=== PATIENT | female | born 2000 | race Caucasian/White ===

== ENCOUNTER 2021-05-20 14:17 | Outpatient (REF) | payer OTHER, SELFPAY | END 2021-05-20 14:18 | disposition home or self-care (01) | LOC: HO.LNP 14:17 | PROVIDERS: Visit Provider Physician Assistant | DX: N39.0 Urinary tract infection, site not specified (principal) | CPT/HCPCS: 87086 ==

== ENCOUNTER 2021-07-09 13:31 | Outpatient (REF) | payer OTHER, SELFPAY ==
--- NOTE | ~2021-07-09 | XR_ITS ---
EXAMINATION: XR CHEST CLINICAL INFORMATION: Chronic cough COMPARISON: None TECHNIQUE: Frontal view of the chest was obtained. FINDINGS: There is mild levoscoliotic deformity of the upper thoracic spine contributing to slightly asymmetric lung volumes. There is question tiny focus of subsegmental atelectasis at the left base, otherwise the lungs are clear. No pleural effusion or pneumothorax. Cardiomediastinal contours are within normal limits. Structures of the chest wall are intact.. XR/XR chest 1V IMPRESSION: Possible minimal subsegmental atelectasis at the left base, otherwise no acute process.
== END 2021-07-09 13:32 | disposition home or self-care (01) ==
LOC: HO.XRAY 13:31
PROVIDERS: PCP Nurse Practitioner Acute Care; Visit Provider Nurse Practitioner Acute Care
DX: R05.3 Chronic cough (principal)
CPT/HCPCS: 71045

== ENCOUNTER 2021-08-03 08:17 | Outpatient (REF) | payer OTHER, SELFPAY ==
[2021-08-03 08:42] LABS: MANUAL DIFF FLAG NO
[2021-08-03 08:55] LABS: Basophils Absolute Auto 0.1 X10*3/uL (0.0-0.2); Basophils Percent Auto 1.1 % (0-2); Eosinophils Absolute Auto 0.4 X10*3/uL (0.0-0.4); Eosinophils Percent Auto 7.3 % (0-4); Hematocrit 40.3 % (37.0-47.0); Hemoglobin 13.1 g/dl (12.0-16.0); Imm Gran Abs Auto 0.02 X10*3/uL (0.00-0.03); Imm Gran Pct Auto 0.4 % (0.0-0.4); Lymphocytes Absolute Auto 2.3 X10*3/uL (1.2-4.9); Lymphocytes Percent Auto 41.3 % (20-40); Mean Corpuscular HGB Conc 32.5 g/dl (31.0-35.0); Mean Corpuscular Hemoglobin 28.4 pg (27.0-33.0); Mean Corpuscular Volume 87.4 fL (80.0-98.0); Mean Platelet Volume 11.9 fL (9.4-12.3); Monocytes Absolute Auto 0.3 X10*3/uL (0.1-1.2); Monocytes Percent Auto 5.9 % (2-11); Neutrophils Absolute Auto 2.5 x10*3/uL (2.0-8.3); Platelet Count 156 X10*3/uL (160-400); Red Blood Count 4.61 X10*6/uL (4.20-5.50); Red Cell Distribution Width 12.8 % (11.0-16.0); White Blood Count 5.6 X10*3/uL (4.8-10.8)
[2021-08-03 09:25] LABS: Alanine Aminotransferase 20 U/L (0-31); Albumin Level 3.9 g/dL (3.5-5.0); Alkaline Phosphatase 68 U/L (39-117); Anion Gap 9 (12-20); Aspartate Amino Transferase 17 U/L (5-31); Bilirubin Total 0.5 mg/dL (0.0-1.0); Blood Urea Nitrogen 8 mg/dL (9-16); Calcium 9.2 mg/dL (8.4-10.2); Carbon Dioxide 29 mmol/L (22-29); Chloride 103 mmol/L (96-108); Cholesterol 170 mg/dL; Estimated Glomerular Filt Rate > 60; Glucose Fasting 95 mg/dL (60-99); HDL Cholesterol 69 mg/dL; LDL Cholesterol Calculated 83 mg/dl; Potassium 3.8 mmol/L (3.3-5.1); Sodium 137 mmol/L (135-145); Total Protein 6.9 g/dL (6.5-8.0); Triglycerides 93 mg/dL
[2021-08-03 09:43] LABS: TSH reflex Free T4 1.39 uIU/mL (0.32-4.0)
[2021-08-03 11:28] LABS: Folate 6.7 ng/mL (> or = 4.0)
[2021-08-03 12:45] LABS: Vitamin B12 325 pg/mL (200-900)
[2021-08-07 16:56] LABS: Vitamin D 25-OH, D2 <4 ng/mL; Vitamin D 25-OH, D3 15 ng/mL; Vitamin D 25-OH, Total 15 ng/mL (30-100)
== END 2021-08-03 08:18 | disposition home or self-care (01) ==
LOC: HO.LAB 08:17
PROVIDERS: PCP Nurse Practitioner Acute Care; Visit Provider Nurse Practitioner Acute Care
DX: Z00.00 Encounter for general adult medical examination without abnormal findings (principal); R05.3 Chronic cough
CPT/HCPCS: 36415; 80053; 80061; 82306; 82607; 82746; 84443; 85025

== ENCOUNTER 2021-08-10 12:53 | Outpatient (REF) | payer OTHER, SELFPAY ==
--- NOTE | ~2021-08-10 | XR_ITS ---
EXAMINATION: XR CHEST CLINICAL INFORMATION: Chronic cough COMPARISON: Previous chest x-ray June 2021 TECHNIQUE: 2 views of the chest were obtained. FINDINGS: The cardiac and mediastinal contours are normal. The lungs are clear. There is no pleural effusion or pneumothorax. There is mild curvature of the proximal thoracic spine to the left. XR/XR chest 2V IMPRESSION: No evidence for acute disease in the chest.
== END 2021-08-10 12:54 | disposition home or self-care (01) ==
LOC: HO.HMGCX 12:53
PROVIDERS: PCP Nurse Practitioner Acute Care; Visit Provider Internal Medicine
DX: R05.3 Chronic cough (principal)
CPT/HCPCS: 71046

== ENCOUNTER 2021-10-23 09:58 | Outpatient (REF) | payer OTHER, SELFPAY ==
[2021-10-23 15:28] LABS: CT PCR NOT DETECTED (Not Detect.); NG PCR NOT DETECTED (Not Detect.)
[2021-10-24 15:09] LABS: BV Int Neg Control Negative (Negative); BV Int Pos Control Positive (Positive)
== END 2021-10-23 09:59 | disposition home or self-care (01) ==
LOC: HO.LAB 09:58
PROVIDERS: Visit Provider Advanced Practice Midwife
DX: Z01.419 Encounter for gynecological examination (general) (routine) without abnormal findings (principal)
CPT/HCPCS: 87480; 87491; 87510; 87591; 87660; 88142

== ENCOUNTER → 2022-02-10 09:13 | Outpatient (BNVA) | payer OTHER, SELFPAY | PROVIDERS: Visit Provider Advanced Practice Midwife | DX: Z30.430 Encounter for insertion of intrauterine contraceptive device (principal); Z30.09 Encounter for other general counseling and advice on contraception; Z32.02 Encounter for pregnancy test, result negative | CPT/HCPCS: 58300; 81025; J7296 ==

== ENCOUNTER 2022-04-02 08:18 | Outpatient (REF) | payer OTHER, SELFPAY ==
[2022-04-02 08:26] LABS: MANUAL DIFF FLAG NO
[2022-04-02 08:52] LABS: Basophils Percent Auto 0.7 % (0-2); Eosinophils Absolute Auto 0.2 X10*3/uL (0.0-0.4); Eosinophils Percent Auto 2.9 % (0-4); Hematocrit 40.8 % (37.0-47.0); Hemoglobin 13.1 g/dl (12.0-16.0); Imm Gran Abs Auto 0.01 X10*3/uL (0.00-0.03); Imm Gran Pct Auto 0.2 % (0.0-0.4); Lymphocytes Percent Auto 36.9 % (20-40); Mean Corpuscular HGB Conc 32.1 g/dl (31.0-35.0); Mean Corpuscular Hemoglobin 28.5 pg (27.0-33.0); Mean Corpuscular Volume 88.9 fL (80.0-98.0); Mean Platelet Volume 12.8 fL (9.4-12.3); Monocytes Absolute Auto 0.4 X10*3/uL (0.1-1.2); Monocytes Percent Auto 7.9 % (2-11); Neutrophils Absolute Auto 2.8 x10*3/uL (2.0-8.3); Neutrophils Percent Auto 51.4 % (45-73); Platelet Count 150 X10*3/uL (160-400); Red Blood Count 4.59 X10*6/uL (4.20-5.50); White Blood Count 5.5 X10*3/uL (4.8-10.8)
[2022-04-02 10:51] LABS: Alanine Aminotransferase 17 U/L (0-31); Albumin Level 4.2 g/dL (3.5-5.0); Alkaline Phosphatase 71 U/L (39-117); Anion Gap 9 (12-20); Aspartate Amino Transferase 14 U/L (5-31); Bilirubin Total 0.3 mg/dL (0.0-1.0); Blood Urea Nitrogen 9 mg/dL (9-16); Calcium 9.2 mg/dL (8.4-10.2); Carbon Dioxide 30 mmol/L (22-29); Chloride 100 mmol/L (96-108); Estimated Glomerular Filt Rate > 60; Glucose Random 102 mg/dL (60-115); Potassium 3.9 mmol/L (3.3-5.1); Sodium 135 mmol/L (135-145); TSH reflex Free T4 1.97 uIU/mL (0.32-4.0); Total Protein 6.9 g/dL (6.5-8.0); Vitamin D 25-OH Total 14.2 ng/mL (>30)
== END 2022-04-02 08:19 | disposition home or self-care (01) ==
LOC: HO.LAB 08:18
PROVIDERS: PCP Nurse Practitioner Family; Visit Provider Nurse Practitioner Family
DX: F41.9 Anxiety disorder, unspecified (principal); E55.9 Vitamin D deficiency, unspecified
CPT/HCPCS: 36415; 80053; 82306; 84443; 85025

== ENCOUNTER → 2022-10-28 10:06 | Outpatient (BNVA) | payer OTHER, SELFPAY | PROVIDERS: PCP Nurse Practitioner Family; Visit Provider Internal Medicine | DX: Z13.89 Encounter for screening for other disorder (principal) | CPT/HCPCS: 99202 ==

== ENCOUNTER 2022-10-28 14:32 | Outpatient (REF) | payer OTHER, SELFPAY ==
[2022-10-28 16:13] LABS: Vitamin D 25-OH Total 29.3 ng/mL (>30)
== END 2022-10-28 14:33 | disposition home or self-care (01) ==
LOC: HO.LAB 14:32
PROVIDERS: PCP Nurse Practitioner Family; Visit Provider Nurse Practitioner Family
DX: E55.9 Vitamin D deficiency, unspecified (principal)
CPT/HCPCS: 36415; 82306

== ENCOUNTER 2023-01-18 09:47 | Outpatient (REF) | payer OTHER, SELFPAY | END 2023-01-18 09:48 | disposition home or self-care (01) | LOC: HO.LAB 09:47 | PROVIDERS: Visit Provider Advanced Practice Midwife | DX: N89.8 Other specified noninflammatory disorders of vagina (principal) | CPT/HCPCS: 81003 ==

== ENCOUNTER 2023-01-18 09:47 | Outpatient (AMB) | payer OTHER, SELFPAY ==
--- NOTE | 2023-01-18 09:52 | A.OFFVIS_ITS ---
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 Scribed for CHICO Apodaca by Leticia Andino quality engineer medical device, on 01/18/2023 at 10:10 am EST. Financial Processing Clerk: Financial Processing Clerk Present (Jess) Allergies No Known Allergies Allergy (Verified 01/18/23 09:53) Is last menstrual period known: Yes Last menstrual period: 12/28/22 HPI HPI Comments History of Present Illness Details She is a premenopausal woman presenting for annual exam. Reports feeling like she is not fully emptying bladder. Denies pelvic pain, fever/ flu-like symptoms or dysuria. She admits to eating healthy and tries to stay active with exercise. Currently sexually active. Uses Kyleena for BC. Denies vaginal itching and irritation. STD screening offered; she accepts. STD blood work offered; she declines. Denies family hx of colon and ovarian cancer. Last pap smear 10/23/21. [facility] Medical History Encounter to establish care Post-COVID syndrome COVID-19 Chronic cough URI (upper respiratory infection) UTI (urinary tract infection) Surgical History No pertinent past surgical history Family History Mother Age: 62 No problems noted. Father No problems noted. 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 Cognitive needs: No Hearing needs: No Vision needs: Yes (contacts) Female Reproductive History Menstrual Age of Menarche: 10 Duration of menses: 6-7 days Date of last menstrual period: 12/28/22 control method: progestin IUCD (Kyleena; IUD strings visible 01/18/23) Total pregnancies: 0 Date of last pap smear: 10/23/21 (neg) Physical Exam Vital Signs: Last Vital Signs BP 110/74 01/18/23 09:53 BMI result Body Mass Index 22.9 Const General: cooperative, healthy appearing, no acute distress, well developed and alert Orientation/consciousness: patient oriented x3 HEENT Head: Yes normal to inspection Eyes General: appearance normal, both eyes and all related structures Neck Neck: Yes normal visual inspection Thyroid: Thyroid normal Chest Chest palpation & inspection: normal inspection of the chest Breast/axilla inspection: normal inspection of the breasts (no puckering, dimpling, peau de orange, retraction, discharge, masses) Breast/axilla palpation: normal palpation of the breasts Resp Effort & Inspection: normal respiratory effort GI Inspection: Yes normal to inspection Palpation (GI): Soft to palpation (to palpation) Rectal Exam - Female: deferred General: Yes bladder normal to inspection External Female Exam: normal external appearance and normal appearance of the urethra Speculum Exam - Vagina: normal appearance of the vagina, normal palpation and abnormal vaginal discharge white and frothy Speculum Exam - Cervix: normal appearance of the cervix, normal palpation and Other cervical findings present (IUD strings visible) Bimanual exam- vagina & uterus: normal palpation and normal palpation Bimanual Exam- Adnexa, other: normal adnexae and no masses Skin General skin exam: no rashes or lesions noted Neuro General: patient oriented x3 Cognition (Neuro): normal cognition Extrem General: Yes normal to inspection Psych Attitude: cooperative Thought process: Normal thought process present Results AMB Urinalysis, Automated UA Leukoctes 0 Duy/uL Last Edit by YUN Munguia on 01/18/23 10:28 UA Nitrite Negative Last Edit by YUN Munguia on 01/18/23 10:28 UA Urobilinogen 0 mg/dL Last Edit by YUN Munguia on 01/18/23 10:2 8 UA Protein 0.5 mg/dL Last Edit by YUN Munguia on 01/18/23 10:28 UA pH 5.5 Last Edit by YUN Munguia on 01/18/23 10:28 UA Blood 0 Jiaro/uL Last Edit by Lynette Gibbons [facility] on 01/18/23 10:28 UA Specific [place]zan[place] 1.030 Last Edit by Lynette Gibbons A on 01/18/23 10:28 UA Ketone Negative Last Edit by Lynette Gibbons, A on 01/18/23 10:28 UA Bilirubin 0 mg/dL Last Edit by Lynette Gibbons A on 01/18/23 10:28 UA Glucose 0 mg/dL Last Edit by Lynette Gibbons [facility] on 01/18/23 10:28 Results Reviewed Results Reviewed: Laboratory Last Values Urine pH (Auto) 5.5 01/18/23 10:22 Specific [place]zan[place] (Auto) 1.030 01/18/23 10:22 Urine Protein (Auto) 0.5 mg/dL 01/18/23 10:22 Glucose (UA)(Auto) 0 mg/dL 01/18/23 10:22 Urine Ketones (Auto) Negative 01/18/23 10:22 Urine Blood (Auto) 0 Jairo/uL 01/18/23 10:22 Urine Nitrite (Auto) Negative 01/18/23 10:22 Urine Bilirubin (Auto) 0 mg/dL 01/18/23 10:22 Urine Urobilinogen (Auto) 0 mg/dL 01/18/23 10:22 Leukocyte Esterase (Auto) 0 Duy/uL 01/18/23 10:22 Assessment & Plan Assessment & Plan (1) Encounter for well woman exam: Code(s): Z01.419 - Encounter for gynecological examination (general) (routine) without abnormal findings Plan: Discussed: Current recommendations for pap smears per ASCCP guidelines. Breast awareness and periodic self breast exams. Maintaining a healthy lifestyle including a well balanced diet and routine exercise. All of her questions and concerns were addressed to the best of my ability. RTO in one year for AG. (2) Potential exposure to STD: Code(s): Z20.2 - Contact with and (suspected) exposure to infections with a predominantly sexual mode of transmission Plan: BV testing and GC/CT panel done today. Await results and treat accordingly. (3) Vaginal discharge: Code(s): N89.8 - Other specified noninflammatory disorders of vagina Plan: Recommend Boric acid capsules. Instructions given. Orders: Orders AMB Urinalysis Automated Today R35.0 - Frequency of micturition Bacterial Vaginosis Panel Today N89.8 - Other specified noninflammatory disorders of vagina, Z20.2 - Contact with and (suspected) exposure to infections with a predominantly sexual mode of transmission CT NG by PCR Today N89.8 - Other specified noninflammatory disorders of vagina, Z20.2 - Contact with and (suspected) exposure to infections with a predominantly sexual mode of transmission Coding Level of Care Code Est Pt Prev Care 18-39y(22856) Diagnoses Encounter for well woman exam Z01.419 Potential exposure to STD Z20.2 Vaginal discharge N89.8
[2023-01-18 09:53] VITALS: BP 110/74; BMI 22.9
== END 2023-01-18 10:31 | disposition home or self-care (01) ==
PROVIDERS: Visit Provider Advanced Practice Midwife
DX: Z01.419 Encounter for gynecological examination (general) (routine) without abnormal findings (principal); Z20.2 Contact with and (suspected) exposure to infections with a predominantly sexual mode of transmission; N89.8 Other specified noninflammatory disorders of vagina; R35.0 Frequency of micturition
CPT/HCPCS: 99395

== ENCOUNTER 2023-01-18 10:22 | Outpatient (REF) | payer OTHER, SELFPAY ==
[2023-01-18 19:13] LABS: CT PCR NOT DETECTED (Not Detect.); NG PCR NOT DETECTED (Not Detect.)
[2023-01-19 15:39] LABS: BV Int Neg Control Negative (Negative); BV Int Pos Control Positive (Positive)
== END 2023-01-18 10:23 | disposition home or self-care (01) ==
LOC: HO.LNP 10:22
PROVIDERS: Visit Provider Advanced Practice Midwife
DX: Z20.2 Contact with and (suspected) exposure to infections with a predominantly sexual mode of transmission (principal); N89.8 Other specified noninflammatory disorders of vagina
CPT/HCPCS: 0353U; 87480; 87510; 87660

== ENCOUNTER 2023-08-22 08:14 | Outpatient (REF) | payer OTHER, SELFPAY ==
[2023-08-22 09:23] LABS: Hematocrit 40.4 % (37.0-47.0); Hemoglobin 13.3 g/dl (12.0-16.0); Mean Corpuscular HGB Conc 32.9 g/dl (31.0-35.0); Mean Platelet Volume 13.3 fL (9.4-12.3); Platelet Count 127 X10*3/uL (160-400); Red Blood Count 4.59 X10*6/uL (4.20-5.50); Red Cell Distribution Width 12.9 % (11.0-16.0); White Blood Count 5.6 X10*3/uL (4.8-10.8)
[2023-08-22 09:29] LABS: Appearance Urine Clear; Color Urine Yellow; Glucose Urine UA Negative (Negative); Leukocyte Esterase Urine Negative (Negative); Nitrite Urine Negative (Negative); Specific Gravity - Urine 1.015 (1.005-1.025); Urine Blood Negative (Negative); Urine Ketones Negative (Negative); Urine Protein Negative (Neg-Trace)
[2023-08-22 09:48] LABS: Alanine Aminotransferase 14 U/L (0-31); Albumin Level 4.2 g/dL (3.5-5.0); Alkaline Phosphatase 59 U/L (39-117); Anion Gap 9 (12-20); Aspartate Amino Transferase 16 U/L (5-31); Bilirubin Direct 0.2 mg/dL (0.0-0.5); Bilirubin Total 0.5 mg/dL (0.0-1.0); Blood Urea Nitrogen 8 mg/dL (9-16); Calcium 9.2 mg/dL (8.4-10.2); Carbon Dioxide 26 mmol/L (22-29); Chloride 108 mmol/L (96-108); Cholesterol 145 mg/dL (<200); Estimated Glomerular Filt Rate > 60; Glucose Random 90 mg/dL (60-115); HDL Cholesterol 64 mg/dL (>40); LDL Cholesterol Calculated 69 mg/dL (<100); Sodium 139 mmol/L (135-145); Triglycerides 63 mg/dL (<150)
== END 2023-08-22 08:15 | disposition home or self-care (01) ==
LOC: HO.LAB 08:14
PROVIDERS: PCP Internal Medicine; Visit Provider Internal Medicine
DX: Z13.6 Encounter for screening for cardiovascular disorders (principal); J45.909 Unspecified asthma, uncomplicated
CPT/HCPCS: 36415; 80048; 80061; 80076; 81003; 84443; 85027

== ENCOUNTER 2023-08-23 08:16 | Outpatient (AMB) | payer OTHER, SELFPAY ==
[2023-08-23 08:21] VITALS: BP 112/70; PULSE 78; O2SAT 98; BMI 22.1
--- NOTE | 2023-08-23 08:21 | MHC.PC.OV ---
Vital Signs 08/23/23 08:21 Height 5 ft 6 in Weight 137 lb BMI 22.1 BP 112/70 Blood Pressure Location Lt brachial Position Sitting Pulse 78 Pulse Source Pulse Oximeter Pulse Oximetry (%) 98 Oxygen Delivery Method Room Air Intake Visit Reasons: establish care Jennifer patient Allergies No Known Allergies Allergy (Verified 08/23/23 09:06) Medication List - Last Reconciled 08/23/23 by Harry Thakkar MD cholecalciferol (vitamin D3) 25 mcg PO DAILY levonorgestrel (Kyleena) intrauterine Tobacco use date assessed: 08/23/23 Dental Screening Dental Screen Date: 08/23/23 Did you have a dental visit in the last 12 months?: Yes Did you have a dental problem in the last 6 months where you did not have access to dental care?: No Was dental information given to patient?: Patient has dentist HPI establish care Jenniefr patient HPI Details 23-year-old female presents to the office to discuss her medical condition. I am assuming her care as her provider has left the practice. 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 She is reporting symptoms of being distracted at work, having time management issues, tardiness and difficulty finishing tasks. She has to use a head phone with white noise to concentrate. Patient does not have awareness of time and is often late. She has never been on antidepressants. Symptoms have worsened since she started employment 2-1/2 years ago. She started seeing a therapist a year ago who promised to get her an appointment at an [facility] which never materialized. Patient otherwise is well functioning. She has adequate support and lives with a roommate. [facility] Medical History Encounter to establish care Post-COVID syndrome COVID-19 Chronic cough URI (upper respiratory infection) UTI (urinary tract infection) Surgical History No pertinent past surgical history Family History Mother Age: 63 No problems noted. Father No problems noted. Paternal Grandmother Breast cancer Brother No problems noted. 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 Cognitive needs: No Hearing needs: No Vision needs: Yes (contacts) Female Reproductive History Menstrual Age of Menarche: 10 Questionnaire PHQ-9 Over the last 2 weeks, how often have you been bothered by any of the following problems? 1. Little interest or pleasure in doing things: several days 2. Feeling down, depressed, or hopeless: several days 3. Trouble falling or staying asleep, or sleeping too much: more than half the days 4. Feeling tired or having little energy: more than half the days 5. Poor appetite or overeating: more than half the days 6. Feeling bad about yourself - or that you are a failure or have let yourself or your family down: several days 7. Trouble concentrating on things, such as reading the newspaper or watching television: more than half the days 8. Moving or speaking so slowly that other people could have noticed. Or the opposite - being so fidgety or restless that you have been moving around a lot more than usual: not at all 9. Thoughts that you would be better off or of hurting yourself in some way: not at all Total score: 11 Depression Screening Interpretation: Negative Depression Screening Done: Yes 11176 - PHQ-9 Billing: Yes Source: Developed by Drs. Caleb العراقي, Beth Sheehan, Madhu Guerrero and colleagues, with an educational mary from [employer]. Thrive Questionnaire Date Thrive assessed: 08/23/23 I am a: Patient What is your living situation today?: I have a steady place to live Within the past 12 months, did the food you bought not last and you didn't have the money to get more?: Never true Within the past 12 months, did you worry whether your food would run out before you got money to buy more?: Never true Do you have trouble paying for medicines?: No Do you have trouble getting transportation to medical appointments?: No Do you have trouble paying your heating and electricity bill?: No Do you have trouble taking care of your child, family member or friend?: No Do you have trouble with day-to-day activities such as bathing, preparing meals, shopping, managing finances, etc.?: No Are you currently unemployed and looking for a job?: No Are you interested in more education?: No Currently or been in a relationship where the following occur: no concerns reported THRIVE Score: 0 AUDIT C Alcohol Use Questionnaire (AUDIT-C) 1. How often do you have a drink containing alcohol?: 2-4 times a month 2. How many drinks containing alcohol do you have on a typical day when you are drinking?: 3 or 4 3. How often do you have six or more drinks on one occasion?: Never Total Score: 3 Score Reviewed/Action Taken: Yes (drinks just on the weekend, denies daily alcohol intake) YUDELKA-7 AMB Questionnaire YUDELKA-7 Date YUDELKA - 7 assessed: 08/23/23 Feeling nervous, anxious, or on edge: 1 = Several days Not being able to stop or control worryin = Several days Worrying too much about different things: 1 = Several days Trouble relaxin = More than half the days Being so restless that it is hard to sit still: 0 = Not at all Becoming easily annoyed or irritable: 2 = More than half the days Feeling afraid as if something awful might happen: 2 = More than half the days Total YUDELKA-7 score (0-4 normal; 5-9 mild; 10-14 moderate; 15-21 severe): 9 Source: Developed by Drs. Caleb العراقي, Beth Sheehan, Madhu Guerrero and colleagues, with an educational mary from [employer]. YUDELKA-7 Assessment Billing YUDELKA-7 Assessment Tool: YUDELKA-7 Assessment 98135 Physical exam (Primary Care) Vital Signs: Last Vital Signs Pulse 78 08/23/23 08:21 BP 112/70 08/23/23 08:21 Pulse Ox 98 08/23/23 08:21 Oxygen Delivery Method Room Air 08/23/23 08:21 BMI result Body Mass Index 22.1 Tobacco/Smoking Status: Tobacco use Status Tobacco use date assessed 08/23/23 08/23/23 08:28 Patient Tobacco Use Status Never used Tobacco 08/23/23 08:28 e-Cigarette/Vaping Use Never Used 08/23/23 08:28 PHQ-9: PHQ-9 Score PHQ-9: Total score 11 08/23/23 08:28 Depression Screening Interpretation: Negative Thrive Assessment: Date of Thrive Assessment Date Thrive assessed 08/23/23 08/23/23 08:28 Currently or been in a relationship where the following occur: no concerns reported Const General: cooperative and healthy appearing Nutritional Appearance: well nourished Orientation/consciousness: patient oriented x3 Limitations: no limitations HENMT Head: Yes normal to inspection Eyes General: appearance normal, both eyes and all related structures Neck Neck: Yes normal visual inspection Chest Chest palpation & inspection: normal palpation of entire chest wall Resp Effort & Inspection: normal respiratory effort Neuro General: patient oriented x3 Assessment and Plan Assessment & Plan (1) Attention deficit disorder: Code(s): F98.8 - Other specified behavioral and emotional disorders with onset usually occurring in childhood and adolescence Plan: Her symptoms point towards this diagnosis. A new service has started at [facility] where a psychiatrist will be seeing her and confirming the diagnosis. Once medications or treatment has been initiated I continue to follow it over here. Blood work was done and thyroid levels are in range. Orders: Referrals Psychiatry Referral F98.8 - Other specified behavioral and emotional disorders with onset usually occurring in childhood and adolescence Coding Level of Care Code Est Pt Level 4 (72742) Diagnoses Attention deficit disorder F98.8 Additional Codes YUDELKA-7 Assessment Billing - YUDELKA-7 Assessment Tool: YUDELKA-7 Assessment 21967 ([id number])
== END 2023-08-23 09:04 | disposition home or self-care (01) ==
PROVIDERS: PCP Internal Medicine; Visit Provider Internal Medicine
DX: F98.8 Other specified behavioral and emotional disorders with onset usually occurring in childhood and adolescence (principal)
CPT/HCPCS: 99214

== ENCOUNTER 2023-08-30 12:25 | Outpatient (AMB) | payer OTHER, SELFPAY ==
--- NOTE | 2023-08-30 11:16 | A.OFFPSYCH_ITS ---
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 She has trouble finishing tasks she is often not aware of time and shows up late for activities. She often uses headphones with white noise in order to concentrate. Today she comes to appointment reporting feeling depressed at times low motivation no en ergy often feels like she just can not do things because of low energy she reports easily frustrated difficulty with emotional regulation she reports that if she is confronted she will burst into tears. Today her PHQ-9 is 16 and her Genralized Anxiety Disorder-7 equals 5. She reports difficulty falling asleep at night. During the day she feels tired all day long until bedtime and then she has trouble settling down and getting to bed. She does sleep from 12 midnight to 07:00. She reports that her diet is not great. She has history of low vitamin-D level and takes a supplement daily. She reports that she did well in school she was good student she was frequently bullied she says that she cried a lot as a child. She was very perfectionistic. Her teachers would comment that she was very chatty. She states that she was a quick learner but frequently inattentive and procrastinated she was active in extracurricular activities including the marching band she played the [employer] she was also part of the [employer] squad and she graduated high school and then went on to college she graduated from [employer] in 2020. She reports that although her grades were good she worked harder than her peers and she often had difficulty with reading comprehension. The patient filled out an adult ADHD self report scale (ASR S-V 1.1) she scored high on inattention difficulty getting things in order when having tests that require organization wrapping up final details of a project remembering appointments. She also scored high in difficulty getting started a project that required a lot of thought she squirms and fidgets if she has to sit for long periods of time difficulty keeping attention when things are boring or repetitive difficulty concentrating on what people say even when they are speaking directly to her she is often distracted by activity or noise around her she will finish people's sentences and interrupt them during conversations she has difficulty waiting her turn she scored lower or more moderately in impulsivity Past Psychiatric History: saw an outpatient therapist for approximately 6 months in March 2022. No inpatient level of care, no partial or IOP: patient has not been on medications in the past Mental Status Exam Mental Status Exam Patient Appearance: Well Grooomed and Appropriate Patient Orientation: Person, Place, Time and Situation Level of Consciousness: Awake Patient Behavior: Cooperative, Anxious and Good Eye Contact Mood Description: Anxious and Sad Affect Description: Anxious and Sad Patient Cognition Impaired: No Ability to Follow Directions: Good Speech Pattern: Clear and Appropriate Memory Description: Intact Hallucinations: None Delusions: Not Present Thought Process: Intact and Goal Oriented Thought Content: positive for Intact and positive for Goal Oriented Judgement: Good Assessment and Plan Assessment & Plan (1) ADHD (attention deficit hyperactivity disorder), inattentive type: Status: Acute Code(s): F90.0 - Attention-deficit hyperactivity disorder, predominantly inattentive type (2) Dysthymia: Status: Acute Code(s): F34.1 - Dysthymic disorder Plan trial of wellbutrin XL 150 mg every morning x 10 days the if tolerating increase to 300mg every morning return in 2-3 weeks Medications: New bupropion HCl XL (Wellbutrin XL) 150 mg PO QAM 30 tabs 0RF Counseling and coordination of Care Pt. Self Management counseling: Mod caffeine/ETOH intake and General coping skills Medication management counseling: Effectiveness, Side effects, Dosing range, Duration, Drug interaction and Adherence Diagnosis and Prognosis Counseling: Accuracy of diagnosis, Prognosis over time, Impact of diagnosis on life functions and Adequacy of current interventions Details: I spent [60 minutes reviewing the record, seeing the patient and documenting in the medical record. Counseling provided to the patient/caregiver as outlined below. Addressed patient/caregiver concerns regarding current medication regime including effective adherence. Addressed patient/caregiver concerns regarding diagnosis and prognosis including accuracy of diagnosis, prognosis over time, impact of diagnosis. Addressed patient/caregiver concerns regarding impact of recent stressors. [facility] Medical History Encounter to establish care Post-COVID syndrome COVID-19 Chronic cough URI (upper respiratory infection) UTI (urinary tract infection) Surgical History No pertinent past surgical history Family History Mother Age: 63 No problems noted. Father No problems noted. Paternal Grandmother Breast cancer Brother No problems noted. 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 Cognitive needs: No Hearing needs: No Vision needs: Yes (contacts) Social History: Lives with 3 friends or roommates up in [place] lived with her mother brother who is 12 years older than her and her mother's boyfriend. Mother's boyfriend moved in when she was 4 years old her biological father when she was 5. 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
--- NOTE | 2023-09-09 12:49 | ...WebTmpl.AM.PHNO ---
Nursing Note pt called and left message that she had one day this week with an episode of extreme emotional reactivity; she cried fro hours over a messy chicken sandwich from [employer] that got all over her hands and desk- she rports that its unusual for her to react like that. Initially she says she doesn't have anxiety but then when talking more she tells me she started a new class and she obsesses that she will do poorly, she wont be able to finish, she'll get behind, she will fail. she reports she does not feel nervous or worried in any other part of her life. She does acknowledge she is a perfectionist. Plan is to ccontinue with wellbutrin XL 150mg daily and dont increase. she has a follow up appt on 09/19. she will call with any other concerns
== END 2023-08-30 14:13 | disposition home or self-care (01) ==
PROVIDERS: PCP Internal Medicine; Visit Provider Clinical Nurse Specialist Psychiatric/Mental Health
DX: F90.0 Attention-deficit hyperactivity disorder, predominantly inattentive type (principal); F34.1 Dysthymic disorder
CPT/HCPCS: 90792

== ENCOUNTER → 2023-08-30 12:25 | Outpatient (BNVA) | payer OTHER, SELFPAY | PROVIDERS: PCP Internal Medicine; Visit Provider Clinical Nurse Specialist Psychiatric/Mental Health | DX: F90.0 Attention-deficit hyperactivity disorder, predominantly inattentive type (principal); F34.1 Dysthymic disorder | CPT/HCPCS: 90792 ==

== ENCOUNTER 2023-09-13 09:54 | Outpatient (AMB) | payer OTHER, SELFPAY ==
--- NOTE | 2023-09-13 09:58 | MHC.OFFVISPS ---
Intake Intake Visit Reasons: depression, ADHD, anxiety Certified Pharmacist Assistant Required: No Allergies No Known Allergies Allergy (Verified 08/23/23 09:06) Medication List - Last Reconciled 09/13/23 by Darlene Calles APRN bupropion HCl XL (Wellbutrin XL) 150 mg PO QAM cholecalciferol (vitamin D3) 25 mcg PO DAILY levonorgestrel (Kyleena) intrauterine HPI- Psychiatric Chief Complaint: depression, ADHD, anxiety HPI Narrative: pt reports felt good on wellbutrin for one week but then felt more anxious, more emotional, crying frequently; in interim pt started new graduate level course which she perceived to be one of the hardest classes she has taken - this set off a significant t amount of worry and anxiety. Pt has low anxiety and worry about other things in her life although she says she tends to be perfectionistic and sometimes struggles with negative thinking such as worrying abotu her BF being mad at ther but she is able to recognize that is not true most times. admin the OBQ 44 and pt scores high on perfectionism but does not meet criteria for OCD Past Psychiatric History: saw an outpatient therapist for approximately 6 months in March 2022. No inpatient level of care, no partial or IOP: patient has not been on medications in the past Subjective Subjective Subjective Medication Compliance: Yes Side effects from medications: Yes (increase anxiety and emotional reactivity) Review of Systems Medical Review of Systems: unchanged Mental Status Exam Mental Status Exam Patient Appearance: Well Grooomed and Appropriate Patient Orientation: Person, Place, Time and Situation Level of Consciousness: Awake Patient Behavior: Appropriate, Cooperative and Restless Mood Description: Anxious Affect Description: Appropriate and Anxious Patient Cognition Impaired: No Ability to Follow Directions: Good Speech Pattern: Clear and Appropriate Memory Description: Intact Hallucinations: None Delusions: Not Present Thought Process: Goal Oriented Thought Content: positive for Goal Oriented Judgement: Good Assessment and Plan Assessment & Plan (1) Dysthymia: Status: Acute Code(s): F34.1 - Dysthymic disorder (2) ADHD (attention deficit hyperactivity disorder), inattentive type: Status: Acute Code(s): F90.0 - Attention-deficit hyperactivity disorder, predominantly inattentive type (3) Anxiety: Status: Acute Code(s): F41.9 - Anxiety disorder, unspecified Plan 23 yo with ADHD inattentive type and anxiety and dysthymia, rule our YUDELKA did not tolerate wellbutrin . plan is to stop wellbutrin and trial of adderall IR. If IR is successful will switch to long acting with IR booster for studying after work if needed. If adderall not tolerated can consider ritalin, strattera, guanfacine, or SNRI Medications: New dextroamphetamine-amphetamine 10 mg (Adderall) administer doses at least 4 hours apart and 4 hours before bedtime Partial Fill upon patient request. 10 mg PO BID 60 tabs 0RF Discontinued bupropion HCl XL (Wellbutrin XL) Discontinued Reason: Doctor's Order 150 mg PO QAM 30 tabs 0RF Counseling and coordination of Care Details: I spent [] minutes reviewing the record, seeing the patient and documenting in the medical record. Counseling provided to the patient/caregiver as outlined below. Addressed patient/caregiver concerns regarding current medication regime including effective adherence. Addressed patient/caregiver concerns regarding diagnosis and prognosis including accuracy of diagnosis, prognosis over time, impact of diagnosis. Addressed patient/caregiver concerns regarding impact of recent stressors. [facility] Medical History Encounter to establish care Post-COVID syndrome COVID-19 Chronic cough URI (upper respiratory infection) UTI (urinary tract infection) Surgical History No pertinent past surgical history Family History Mother Age: 63 No problems noted. Father No problems noted. Paternal Grandmother Breast cancer Brother No problems noted. 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 Cognitive needs: No Hearing needs: No Vision needs: Yes (contacts) Social History: Lives with 3 friends or roommates up in [place] lived with her mother brother who is 12 years older than her and her mother's boyfriend. Mother's boyfriend moved in when she was 4 years old her biological father when she was 5. 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 Substance History: No history of substance abuse Trauma History: Patient reports difficult childhood with her stepfather and also being bullied at school Coding Level of Care Code Est Pt Level 4 (56156) Diagnoses Dysthymia F34.1 ADHD (attention deficit hyperactivity disorder), inattentive type F90.0 Anxiety F41.9
== END 2023-09-13 10:31 | disposition home or self-care (01) ==
LOC: HO.HOP 09:54
PROVIDERS: PCP Internal Medicine; Visit Provider Clinical Nurse Specialist Psychiatric/Mental Health
DX: F34.1 Dysthymic disorder (principal); F90.0 Attention-deficit hyperactivity disorder, predominantly inattentive type; F41.9 Anxiety disorder, unspecified
CPT/HCPCS: 99214

== ENCOUNTER → 2023-09-13 09:54 | Outpatient (BNVA) | payer OTHER, SELFPAY | PROVIDERS: PCP Internal Medicine; Visit Provider Clinical Nurse Specialist Psychiatric/Mental Health ==

== ENCOUNTER 2023-09-27 09:55 | Outpatient (AMB) | payer OTHER, SELFPAY ==
--- NOTE | 2023-09-27 09:59 | A.OFFPSYCH_ITS ---
Intake Intake Visit Reasons: anxiety, depression Allergies No Known Allergies Allergy (Verified 08/23/23 09:06) Medication List - Last Reconciled 09/27/23 by Darlene Calles APRN cholecalciferol (vitamin D3) 25 mcg PO DAILY dextroamphetamine-amphetamine 10 mg (Adderall) 10 mg PO BID levonorgestrel (Kyleena) intrauterine HPI- Psychiatric Chief Complaint: anxiety, depression HPI Narrative: pt reports increased difficulty with adderall; skin picking and hair pulling daily; unable to focus; reports more energy and able to get out of bed but no other improvements; reports increased awareness of her anxiety and perfectionistic tendencies she reports intrusive thoughts of past trauma with rumination; procrastination increased; avoidance ot activities if hint she can not do perfectly. no SI or HI. reports body tension and anxiety. Past Psychiatric History: saw an outpatient therapist for approximately 6 months in March 2022. No inpatient level of care, no partial or IOP: patient has not been on medications in the past Subjective Subjective Subjective Medication Compliance: Yes Side effects from medications: Yes Mental Status Exam Mental Status Exam Patient Appearance: Well Grooomed and Appropriate Patient Orientation: Person, Place, Time and Situation Level of Consciousness: Awake and Alert Patient Behavior: Appropriate Patient Cognition Impaired: No Ability to Follow Directions: Good Speech Pattern: Clear and Appropriate Memory Description: Intact Hallucinations: None Delusions: Not Present Thought Process: Intact and Goal Oriented Thought Content: positive for Intact and positive for Goal Oriented Judgement: Good Assessment and Plan Assessment & Plan (1) YUDELKA (generalized anxiety disorder): Status: Acute Code(s): F41.1 - Generalized anxiety disorder (2) Dysthymia: Status: Acute Code(s): F34.1 - Dysthymic disorder Plan pt reports adderall helped her energy and morning but caused severe skin picking and hair pulling urges. she reports no improvemnt in focus or procrastination; dx anxiety with OCD tendencies stop adderall if needed may take 2.5 mg of adderall in am temporarily for energy management/depression plan start zoloft 50 mg tablet take 1/2 tab daily with food x 4 days then start 50mg daily with food. Medications: New sertraline (Zoloft) 50 mg orally take 1/2 tab daily with food x 4 dyas then take one tab daily with food; 30 tabs 0RF Counseling and coordination of Care Pt. Self Management counseling: Mod caffeine/ETOH intake Medication management counseling: Effectiveness, Side effects, Dosing range, Duration, Drug interaction and Adherence Diagnosis and Prognosis Counseling: Accuracy of diagnosis, Prognosis over time, Impact of diagnosis on life functions, Impact of family relationship, Problematic behaviors secondary to diagnosis and Adequacy of current interventions Details: I spent [] minutes reviewing the record, seeing the patient and documenting in the medical record. Counseling provided to the patient/caregiver as outlined below. Addressed patient/caregiver concerns regarding current medication regime including effective adherence. Addressed patient/caregiver concerns regarding diagnosis and prognosis including accuracy of diagnosis, prognosis over time, impact of diagnosis. Addressed patient/caregiver concerns regarding impact of recent stressors. [facility] Medical History Encounter to establish care Post-COVID syndrome COVID-19 Chronic cough URI (upper respiratory infection) UTI (urinary tract infection) Surgical History No pertinent past surgical history Family History Mother Age: 63 No problems noted. Father No problems noted. Paternal Grandmother Breast cancer Brother No problems noted. 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 Cognitive needs: No Hearing needs: No Vision needs: Yes (contacts) Social History: Lives with 3 friends or roommates up in [place] lived with her mother brother who is 12 years older than her and her mother's boyfriend. Mother's boyfriend moved in when she was 4 years old her biological father when she was 5. 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
== END 2023-09-27 10:29 | disposition home or self-care (01) ==
LOC: HO.HOP 09:55
PROVIDERS: PCP Internal Medicine; Visit Provider Clinical Nurse Specialist Psychiatric/Mental Health
DX: F41.1 Generalized anxiety disorder (principal); F34.1 Dysthymic disorder
CPT/HCPCS: 99214

== ENCOUNTER → 2023-09-27 09:55 | Outpatient (BNVA) | payer OTHER, SELFPAY | PROVIDERS: PCP Internal Medicine; Visit Provider Clinical Nurse Specialist Psychiatric/Mental Health ==

== ENCOUNTER 2023-10-25 09:33 | Outpatient (AMB) | payer OTHER, SELFPAY ==
--- NOTE | 2023-10-25 09:36 | A.OFFPSYCH_ITS ---
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 Allergies No Known Allergies Allergy (Verified 08/23/23 09:06) Medication List - Last Reconciled 10/25/23 by Darlene Calles APRN cholecalciferol (vitamin D3) 25 mcg PO DAILY levonorgestrel (Kyleena) intrauterine sertraline (Zoloft) 50 mg orally take 1/2 tab daily with food x 4 dyas then take one tab daily with food; HPI- Psychiatric Chief Complaint: depression, anxiety HPI Narrative: pt is taking zolloft 50mg without side effects; she reports her anxiety is reduced; no skin picking or hair pulling; feels her concentration is better; she still procrastinates but is using coping skills to limit the procrastination; she is scheduling time for things she would rather not do but has to such as some homework. She is much less anxios and on edge. she is worrying less. she is more able to relax. she can still be easily annoyed and has trouble sitting still. The most difficult symptoms she has is feeling tired all the time. We discussed the things that can improve energy such as healthy diet, maintaining vit D levels and Vitamin B levels, staying hydrated, exercising, adequate sleep. We reviewed labs and she is not anemic. We discussed pros and cons of increasing zoloft and together decided to leave the zoloft at 50mg for now but it could be increased if anxiety or depression increases. For now the ADHD diagnosis id deferred as her functioning is improved; despite the poor response to adderall she may still have Adult ADHD combined type and if becomes and issues in futue she could try alternative such as low dose ritalin, strattera, wellbutrin or clonidine. Past Psychiatric History: saw an outpatient therapist for approximately 6 months in March 2022. No inpatient level of care, no partial or IOP: p atient has not been on medications in the past Subjective Subjective Subjective Medication Compliance: Yes Side effects from medications: No Review of Systems Medical Review of Systems: unchanged Mental Status Exam Mental Status Exam Patient Appearance: Well Grooomed and Appropriate Patient Orientation: Person, Place, Time and Situation Level of Consciousness: Awake and Alert Patient Behavior: Appropriate, Cooperative and Good Eye Contact Mood Description: Happy and Anxious (mild ) Affect Description: Happy and Appropriate Patient Cognition Impaired: No Ability to Follow Directions: Good Speech Pattern: Clear, Appropriate and Coherent Memory Description: Intact Hallucinations: None Delusions: Not Present Thought Process: Intact and Goal Oriented Thought Content: positive for Intact and positive for Goal Oriented Judgement: Good Assessment and Plan Assessment & Plan (1) YUDELKA (generalized anxiety disorder): Status: Acute Code(s): F41.1 - Generalized anxiety disorder (2) Dysthymia: Status: Acute Code(s): F34.1 - Dysthymic disorder Plan continue zoloft 50mg daily - 3 month suply sent to pharm consider taking B50 complex vitamin 4-7 times a week - one tab continue to take vit D daily drink plenty of fluids throughout the day Medications: Changed From sertraline (Zoloft) 50 mg orally take 1/2 tab daily with food x 4 dyas then take one tab daily with food; 30 tabs 0RF To sertraline (Zoloft) take with food 50 mg PO DAILY 90 tabs 0RF Counseling and coordination of Care Pt. Self Management counseling: Exercise, Maintenance-social rhythm, Mod caffeine/ETOH intake, Nutrition education and improvement and Sleep hygiene Medication management counseling: Effectiveness, Side effects, Dosing range, Du ration, Drug interaction and Adherence Diagnosis and Prognosis Counseling: Accuracy of diagnosis, Prognosis over time, Impact of diagnosis on life functions, Impact of family relationship, Problematic behaviors secondary to diagnosis and Adequacy of current interventions Details: I spent 30 minutes reviewing the record, seeing the patient and documenting in the medical record. Counseling provided to the patient/caregiver as outlined below. Addressed patient/caregiver concerns regarding current medication regime including effective adherence. Addressed patient/caregiver concerns regarding diagnosis and prognosis including accuracy of diagnosis, prognosis over time, impact of diagnosis. Addressed patient/caregiver concerns regarding impact of recent stressors. [facility] Medical History Encounter to establish care Post-COVID syndrome COVID-19 Chronic cough URI (upper respiratory infection) UTI (urinary tract infection) Surgical History No pertinent past surgical history Family History Mother Age: 63 No problems noted. Father No problems noted. Paternal Grandmother Breast cancer Brother No problems noted. 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 Cognitive needs: No Hearing needs: No Vision needs: Yes (contacts) Social History: Lives with 3 friends or roommates up in [place] lived with her mother brother who is 12 years older than her and her mother's boyfriend. Mother's boyfriend moved in when she was 4 years old her biological father when she was 5. 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
== END 2023-10-25 11:57 | disposition home or self-care (01) ==
LOC: HO.HOP 09:33
PROVIDERS: PCP Internal Medicine; Visit Provider Clinical Nurse Specialist Psychiatric/Mental Health
DX: F41.1 Generalized anxiety disorder (principal); F34.1 Dysthymic disorder
CPT/HCPCS: 99214

== ENCOUNTER → 2023-10-25 09:33 | Outpatient (BNVA) | payer OTHER, SELFPAY | PROVIDERS: PCP Internal Medicine; Visit Provider Clinical Nurse Specialist Psychiatric/Mental Health ==

== ENCOUNTER 2023-11-17 14:13 | Outpatient (AMB) | payer OTHER, SELFPAY ==
--- NOTE | 2023-11-17 13:46 | A.OFFPSYCH_ITS ---
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 she also reports anxiety with worry and irritability; she is having trouble getting out of bed despite 8 full hours of sleep; she also tires to read at night for school and easily falls asleep while tryng to do her homework. she has trouble staying focused on her work. she denies SI or HI; she has hx of low vit d. she is not taking supplement; we discussed restarting vit d 3 1000 IU daily. We discussed trial of very low dose ritalin or provigil. we agreed to trial of ritalin 2.5 mg bid. Past Psychiatric History: saw an outpatient therapist for approximately 6 months in March 2022. No inpatient level of care, no partial or IOP: patient has not been on medications in the past Subjective Subjective Subjective Medication Compliance: Yes Side effects from medications: No Review of Systems Medical Review of Systems: unchanged Mental Status Exam Mental Status Exam Patient Appearance: Well Grooomed and Appropriate Patient Orientation: Person, Place, Time and Situation Level of Consciousness: Awake Patient Behavior: Appropriate Mood Description: Anxious and Sad Affect Description: Anxious and Sad Patient Cognition Impaired: No Ability to Follow Directions: Good Speech Pattern: Clear and Appropriate Memory Description: Intact Hallucinations: None Delusions: Not Present Thought Process: Intact Thought Content: positive for Intact Judgement: Good Assessment and Plan Assessment & Plan (1) YUDELKA (generalized anxiety disorder): Status: Acute Code(s): F41.1 - Generalized anxiety disorder (2) OCD (obsessive compulsive disorder): Status: Acute Qualifiers: Obsessive-compulsive disorder type: mixed obsessional thoughts and acts Qualified Code(s): F42.2 - Mixed obsessional thoughts and acts Code(s): F42.9 - Obsessive-compulsive disorder, unspecified (3) ADHD (attention deficit hyperactivity disorder), inattentive type: Status: Acute Code(s): F90.0 - Attention-deficit hyperactivity disorder, predominantly inattentive type Plan increase zoloft to 100mg daily add ritalin 2.5 mg BID prn attention/focus Medications: New sertraline (Zoloft) 100 mg PO DAILY 30 tabs 2RF methylphenidate HCl (Ritalin) Partial Fill upon patient request. 2.5 mg (1/2 x 5 mg) PO BID PRN 30 tabs 0RF attention Refilled cholecalciferol (vitamin D3) 25 mcg PO DAILY 90 tabs 3RF R79.89 - Other specified abnormal findings of blood chemistry Discontinued sertraline (Zoloft) take with food Discontinued Reason: Doctor's Order 50 mg PO DAILY 90 tabs 0RF Counseling and coordination of Care Pt. Self Management counseling: Maintenance-social rhythm, Mod caffeine/ETOH intake, Sleep hygiene and General coping skills Medication management counseling: Effectiveness, Side effects, Dosing range, Duration, Drug interaction and Adherence Diagnosis and Prognosis Counseling: Accuracy of diagnosis, Prognosis over time, Impact of diagnosis on life functions, Impact of family relationship, Problematic behaviors secondary to diagnosis and Adequacy of current interventions Details: I spent 30 minutes reviewing the record, seeing the patient and documenting in the medical record. Counseling provided to the patient/caregiver as outlined below. Addressed patient/caregiver concerns regarding current medication regime including eff ective adherence. Addressed patient/caregiver concerns regarding diagnosis and prognosis including accuracy of diagnosis, prognosis over time, impact of diagnosis. Addressed patient/caregiver concerns regarding impact of recent stressors. [facility] Medical History Encounter to establish care Post-COVID syndrome COVID-19 Chronic cough URI (upper respiratory infection) UTI (urinary tract infection) Surgical History No pertinent past surgical history Family History Mother Age: 63 No problems noted. Father No problems noted. Paternal Grandmother Breast cancer Brother No problems noted. 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 Cognitive needs: No Hearing needs: No Vision needs: Yes (contacts) Social History: Lives with 3 friends or roommates up in [place] lived with her mother brother who is 12 years older than her and her mother's boyfriend. Mother's boyfriend moved in when she was 4 years old her biological father when she was 5. 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
== END 2023-11-17 17:45 | disposition home or self-care (01) ==
LOC: HO.HOP 14:13
PROVIDERS: PCP Internal Medicine; Visit Provider Clinical Nurse Specialist Psychiatric/Mental Health
DX: F41.1 Generalized anxiety disorder (principal); F42.2 Mixed obsessional thoughts and acts; F90.0 Attention-deficit hyperactivity disorder, predominantly inattentive type
CPT/HCPCS: 99214

== ENCOUNTER → 2023-11-17 14:13 | Outpatient (BNVA) | payer OTHER, SELFPAY | PROVIDERS: PCP Internal Medicine; Visit Provider Clinical Nurse Specialist Psychiatric/Mental Health | DX: R79.89 Other specified abnormal findings of blood chemistry (principal) ==

== ENCOUNTER 2023-12-15 13:01 | Outpatient (AMB) | payer OTHER, SELFPAY ==
--- NOTE | 2023-12-15 13:09 | MHC.OFFVISPS ---
Intake Intake Visit Reasons: depression Peoplesoft Administrator Required: No Allergies No Known Allergies Allergy (Verified 08/23/23 09:06) Medication List - Last Reconciled 12/15/23 by Darlene Calles APRN cholecalciferol (vitamin D3) 25 mcg PO DAILY levonorgestrel (Kyleena) intrauterine methylphenidate HCl (Ritalin) 2.5 mg (1/2 x 5 mg) PO BID PRN sertraline (Zoloft) 100 mg PO DAILY HPI- Psychiatric Chief Complaint: depression HPI Narrative: pt reports much improved anxiety; less obsessing and worry; less perfectionism; reports continued fatigue. sleeps 8-10 hours but still feel very tired every day. can fall alseep easily any time of day; trouble waking in am despite going to bed at reasonable hour and falling sleep. pt can easily sleep 12-13 hours on weekends or vacation if uninterrupted;pt reports pain in body, back, ankles, feet. she also reports long history of balance problems or easily dizzy. these are not new symptoms but continue despite feeling better; ritalin did not agree with her and did not help so she stopped. reviewed labs ; no thyroid issues, no anemia. Vitamin D level low Past Psychiatric History: saw an outpatient therapist for approximately 6 months in March 2022. No inpatient level of care, no partial or IOP: patient has not been on medications in the past Subjective Subjective Subjective Medication Compliance: Yes Side effects from medications: No Review of Systems Medical Review of Systems: unchanged Mental Status Exam Mental Status Exam Patient Appearance: Well Grooomed and Appropriate Patient Orientation: Person, Place, Time and Situation Level of Consciousness: Awake and Alert Patient Behavior: Appropriate and Good Eye Contact Mood Description: Calm and Blunted Affect Description: Blunted and Flat Patient Cognition Impaired: No Ability to Follow Directions: Good Speech Pattern: Clear and Appropriate Memory Description: Intact Hallucinations: None Delusions: Not Present Thought Process: Intact and Goal Oriented Thought Content: positive for Intact and positive for Goal Oriented Judgement: Fair Assessment and Plan Assessment & Plan (1) YUDELKA (generalized anxiety disorder): Status: Acute Code(s): F41.1 - Generalized anxiety disorder (2) OCD (obsessive compulsive disorder): Status: Acute Qualifiers: Obsessive-compulsive disorder type: mixed obsessional thoughts and acts Qualified Code(s): F42.2 - Mixed obsessional thoughts and acts Code(s): F42.9 - Obsessive-compulsive disorder, unspecified (3) Dysthymia: Status: Acute Code(s): F34.1 - Dysthymic disorder Plan increase zoloft to 150mg daily stop ritalin recommend vit D 1000 IU daily recommend vit b50 complex discussed nutrition recommend she discuss continued fatigue and sleepiness with PCP; pt is ocncerned about POTS syndrome and Erhelers danlos syndrome; consider sleep study Medications: Changed From sertraline (Zoloft) 100 mg PO DAILY 30 tabs 2RF To sertraline (Zoloft) 150 mg (1.5 x 100 mg) PO DAILY 45 tabs 3RF Refilled cholecalciferol (vitamin D3) 25 mcg PO DAILY 90 tabs 3RF R79.89 - Other specified abnormal findings of blood chemistry Discontinued methylphenidate HCl (Ritalin) Partial Fill upon patient request. Discontinued Reason: Doctor's Order 2.5 mg (1/2 x 5 mg) PO BID PRN 30 tabs 0RF attention Counseling and coordination of Care Pt. Self Management counseling: Mod caffeine/ETOH intake, Sleep hygiene and General coping skills Medication management counseling: Effectiveness, Side effects, Dosing range, Duration, Drug interaction and Adherence Diagnosis and Prognosis Counseling: Accuracy of diagnosis, Prognosis over time, Impact of diagnosis on life functions, Problematic behaviors secondary to diagnosis and Adequacy of current interventions Details: I spent 45 minutes reviewing the record, seeing the patient and documenting in the medical record. Counseling provided to the patient/caregiver as outlined below. Addressed patient/caregiver concerns regarding current medication regime including effective adherence. Addressed patient/caregiver concerns regarding diagnosis and prognosis including accuracy of diagnosis, prognosis over time, impact of diagnosis. Addressed patient/caregiver concerns regarding impact of recent stressors. [facility] Medical History (Updated 12/15/23 @ 15:35 by Darlene Calles APRN) ADHD (attention deficit hyperactivity disorder), inattentive type Encounter to establish care Post-COVID syndrome COVID-19 Chronic cough URI (upper respiratory infection) UTI (urinary tract infection) Surgical History No pertinent past surgical history Family History Mother Age: 63 No problems noted. Father No problems noted. Paternal Grandmother Breast cancer Brother No problems noted. 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 Cognitive needs: No Hearing needs: No Vision needs: Yes (contacts) Social History: Lives with 3 friends or roommates ; grew up in [place] lived with her mother brother who is 12 years older than her and her mother's boyfriend. Mother's boyfriend moved in when she was 4 years old her biological father when she was 5. 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
== END 2023-12-15 14:35 | disposition home or self-care (01) ==
LOC: HO.HOP 13:01
PROVIDERS: PCP Internal Medicine; Visit Provider Clinical Nurse Specialist Psychiatric/Mental Health
DX: F41.1 Generalized anxiety disorder (principal); F42.2 Mixed obsessional thoughts and acts; F34.1 Dysthymic disorder
CPT/HCPCS: 90833; 99214

== ENCOUNTER → 2023-12-15 13:01 | Outpatient (BNVA) | payer OTHER, SELFPAY | PROVIDERS: PCP Internal Medicine; Visit Provider Clinical Nurse Specialist Psychiatric/Mental Health ==

== ENCOUNTER 2023-12-28 10:08 | Outpatient (AMB) | payer OTHER, SELFPAY ==
[2023-12-28 10:10] VITALS: BP 102/70; PULSE 53; O2SAT 97; BMI 23.1
--- NOTE | 2023-12-28 10:10 | A.OFFPC_ITS ---
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 Required: No Accompanied by: Self / Same As Patient Allergies No Known Allergies Allergy (Verified 01/03/24 18:43) Medication List - Last Reconciled 01/03/24 by Harry Thakkar MD cholecalciferol (vitamin D3) 25 mcg PO DAILY levonorgestrel (Kyleena) intrauterine sertraline (Zoloft) 150 mg (1.5 x 100 mg) PO DAILY Tobacco use date assessed: 12/28/23 Dental Screening Dental Screen Date: 12/28/23 Did you have a dental visit in the last 12 months?: Yes Did you have a dental problem in the last 6 months where you did not have access to dental care?: No Was dental information given to patient?: Patient has dentist HPI PE HPI Details 23-year-old female presents to the [facility] for an annual physical. In addition patient wishes to discuss her depression and scoliosis. Patient was seen for depression in the last office visit. On my recommendation, she saw a psychiatrist and is on Zoloft. Patient is doing well with her symptoms of anxiety and OCD. Able to function and do all activities of daily living. Patient would like to get an x-ray of her spine. She believes she has scoliosis. [facility] Medical History ADHD (attention deficit hyperactivity disorder), inattentive type Encounter to establish care Post-COVID syndrome COVID-19 Chronic cough URI (upper respiratory infection) UTI (urinary tract infection) Surgical History No pertinent past surgical history Family History Mother Age: 63 No problems noted. Father No problems noted. Paternal Grandmother Breast cancer Brother No problems noted. 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 Cognitive needs: No Hearing needs: No Vision needs: Yes (contacts) Female Reproductive History Menstrual Age of Menarche: 10 Questionnaire PHQ-9 Over the last 2 weeks, how often have you been bothered by any of the following problems? 1. Little interest or pleasure in doing things: several days (occasionally ) 2. Feeling down, depressed, or hopeless: several days 3. Trouble falling or staying asleep, or sleeping too much: more than half the days 4. Feeling tired or having little energy: more than half the days 5. Poor appetite or overeating: more than half the days 6. Feeling bad about yourself - or that you are a failure or have let yourself or your family down: several days 7. Trouble concentrating on things, such as reading the newspaper or watching television: more than half the days 8. Moving or speaking so slowly that other people could have noticed. Or the opposite - being so fidgety or restless that you have been moving around a lot more than usual: not at all 9. Thoughts that you would be better off or of hurting yourself in some way: not at all Total score: 11 Depression Screening Interpretation: Positive Depression Screening Follow-up: In treatment Depression Screening Done: Yes 96939 - PHQ-9 Billing: Yes Source: Developed by Drs. Caleb العراقي, Beth Sheehan, Madhu Guerrero and colleagues, with an educational mary from [employer]. Thrive Questionnaire Date Thrive assessed: 12/28/23 I am a: Patient What is your living situation today?: I have a steady place to live Within the past 12 months, did the food you bought not last and you didn't have the money to get more?: Never true Within the past 12 months, did you worry whether your food would run out before you got money to buy more?: Never true Do you have trouble paying for medicines?: No Do you have trouble getting transportation to medical appointments?: No Do you have trouble paying your heating and electricity bill?: No Do you have trouble taking care of your child, family member or friend?: No Do you have trouble with day-to-day activities such as bathing, preparing meals, shopping, managing finances, etc.?: No Are you currently unemployed and looking for a job?: No Are you interested in more education?: No Please select the resources that you would like help with: None Currently or been in a relationship where the following occur: No concerns reported THRIVE Score: 0 AUDIT C Alcohol Use Questionnaire (AUDIT-C) 1. How often do you have a drink containing alcohol?: 2-4 times a month 2. How many drinks containing alcohol do you have on a typical day when you are drinking?: 3 or 4 3. How often do you have six or more drinks on one occasion?: Never Total Score: 3 Score Reviewed/Action Taken: Yes (drinks just on the weekend, denies daily alcohol intake) YUDELKA-7 AMB Questionnaire YUDELKA-7 Date YUDELKA - 7 assessed: 12/28/23 Feeling nervous, anxious, or on edge: 1 = Several days Not being able to stop or control worryin = Several days Worrying too much about different things: 1 = Several days Trouble relaxin = More than half the days Being so restless that it is hard to sit still: 0 = Not at all Becoming easily annoyed or irritable: 2 = More than half the days Feeling afraid as if something awful might happen: 2 = More than half the days Total YUDELKA-7 score (0-4 normal; 5-9 mild; 10-14 moderate; 15-21 severe): 9 Source: Developed by Drs. Caleb العراقي, Beth Sheehan, Madhu Guerrero and colleagues, with an educational mary from [employer]. YUDELKA-7 Assessment Billing YUDELKA-7 Assessment Tool: YUDELKA-7 Assessment 46389 Physical exam (Primary Care) Vital Signs: Last Vital Signs Pulse 53 12/28/23 10:10 BP 102/70 12/28/23 10:10 Pulse Ox 97 12/28/23 10:10 Oxygen Delivery Method Room Air 12/28/23 10:10 Care Plan Goal for BP management: Blood pressure is in range. BMI result Body Mass Index 23.1 Tobacco/Smoking Status: Tobacco use Status Tobacco use date assessed 12/28/23 12/28/23 10:18 Patient Tobacco Use Status Never used Tobacco 12/28/23 10:18 e-Cigarette/Vaping Use Former Use 12/28/23 10:18 PHQ-9: PHQ-9 Score PHQ-9: Total score 11 12/28/23 10:18 Depression Screening Interpretation: Positive Depression Screening Follow-up: In treatment Thrive Assessment: Date of Thrive Assessment Date Thrive assessed 12/28/23 12/28/23 10:18 Currently or been in a relationship where the following occur: No concerns reported Const General: cooperative and healthy appearing Nutritional Appearance: well nourished Orientation/consciousness: patient oriented x3 Limitations: no limitations HENMT Head: Yes normal to inspection Eyes General: appearance normal, both eyes and all related structures Neck Neck: Yes normal visual inspection Chest Chest palpation & inspection: normal palpation of entire chest wall Resp Effort & Inspection: normal respiratory effort Neuro General: patient oriented x3 Assessment and Plan Assessment & Plan (1) YUDELKA (generalized anxiety disorder): Code(s): F41.1 - Generalized anxiety disorder Plan: Continue Zoloft at same dosage. (2) Annual physical exam: Code(s): Z00.00 - Encounter for general adult medical examination without abnormal findings Plan: Blood work has been ordered. Will call with results. (3) Scoliosis: Code(s): M41.9 - Scoliosis, unspecified Plan: X-ray of the spine has been ordered. Will call with results. Coding Level of Care Code Est Pt Level 3 (50335) Est Pt Prev Care 18-39y(94847) Diagnoses YUDELKA (generalized anxiety disorder) F41.1 Annual physical exam Z00.00 Scoliosis M41.9 Additional Codes YUDELKA-7 Assessment Billing - YUDELKA-7 Assessment Tool: YUDELKA-7 Assessment [id number] ([id number])
== END 2023-12-28 10:37 | disposition home or self-care (01) ==
PROVIDERS: PCP Internal Medicine; Visit Provider Internal Medicine
DX: Z00.00 Encounter for general adult medical examination without abnormal findings (principal); F41.1 Generalized anxiety disorder; M41.9 Scoliosis, unspecified
CPT/HCPCS: 99213; 99395

== ENCOUNTER 2024-01-05 06:10 | Outpatient (REF) | payer OTHER, SELFPAY ==
--- NOTE | ~2024-01-05 | XR_ITS ---
EXAMINATION: XR LUMBOSACRAL SPINE CLINICAL INFORMATION: Scoliosis. COMPARISON: None available. TECHNIQUE: Three views of the lumbosacral spine. FINDINGS: Minimal dextrocurvature of the lumbar spine which may be positional. The lumbar lordosis is maintained. No acute fracture or subluxation. No loss of vertebral body height. Loss of intervertebral disc height with endplate osteophytes and bilateral facet arthropathy at L5-S1. No concerning lytic or blastic osseous lesion. IUD within the pelvis. XR/XR lumbar spine 2-3V IMPRESSION: Moderate degenerative disc disease and bilateral facet arthropathy at L5-S1. Electronically signed by: Shelton Edwards MD 01/19/2024 08:56 PM EDT
== END 2024-01-05 06:11 | disposition home or self-care (01) ==
LOC: HO.XRAY 06:10
PROVIDERS: PCP Internal Medicine; Visit Provider Internal Medicine
DX: M41.9 Scoliosis, unspecified (principal)
CPT/HCPCS: 72100

== ENCOUNTER 2024-01-16 16:32 | Outpatient (AMB) | payer OTHER, SELFPAY ==
--- NOTE | 2024-01-16 16:39 | MHC.OFFVISPS ---
Intake Intake Visit Reasons: depression Security Agent Required: No Allergies No Known Allergies Allergy (Verified 01/03/24 18:43) Medication List - Last Reconciled 01/16/24 by Darlene Calles APRN cholecalciferol (vitamin D3) 25 mcg PO DAILY levonorgestrel (Kyleena) intrauterine sertraline (Zoloft) 150 mg (1.5 x 100 mg) PO DAILY HPI- Psychiatric Chief Complaint: depression HPI Narrative: pts mood much improved; anxiety reduced. PHQ9=3 and GAD7 =0. Pt still struggles with procrastinating with school work but is coping much better with that and with daily life stress; she feels more at ease, less worried. She obsessses less about perfectionism. she is not depressed, not bursting into tears; she has more positive self talk. more enrgy and more motivation; generally she is sleeping better. no other medical changes; she reports sweating with the zoloft but feels it is manageable; no other side effects from zoloft. Past Psychiatric History: saw an outpatient therapist for approximately 6 months in March 2022. No inpatient level of care, no partial or IOP: patient has not been on medications in the past Subjective Subjective Subjective Medication Compliance: Yes Side effects from medications: No Review of Systems Medical Review of Systems: unchanged Mental Status Exam Mental Status Exam Patient Appearance: Well Grooomed and Appropriate Patient Orientation: Person, Place, Time and Situation Level of Consciousness: Awake and Alert Patient Behavior: Appropriate Mood Description: Happy Affect Description: Happy Patient Cognition Impaired: No Ability to Follow Directions: Good Speech Pattern: Clear Memory Description: Intact Hallucinations: None Delusions: Not Present Thought Process: Intact and Goal Oriented Thought Content: positive for Intact and positive for Goal Oriented Judgement: Good Assessment and Plan Assessment & Plan (1) YUDELKA (generalized anxiety disorder): Status: Acute Code(s): F41.1 - Generalized anxiety disorder (2) OCD (obsessive compulsive disorder): Status: Acute Qualifiers: Obsessive-compulsive disorder type: mixed obsessional thoughts and acts Qualified Code(s): F42.2 - Mixed obsessional thoughts and acts Code(s): F42.9 - Obsessive-compulsive disorder, unspecified (3) Dysthymia: Status: Acute Code(s): F34.1 - Dysthymic disorder Plan continue with zoloft 150mg daily follow up with PCP Medications: Refilled sertraline (Zoloft) 150 mg (1.5 x 100 mg) PO DAILY 45 tabs 3RF Discontinued cholecalciferol (vitamin D3) Discontinued Reason: Doctor's Order 25 mcg PO DAILY 90 tabs 3RF R79.89 - Other specified abnormal findings of blood chemistry Counseling and coordination of Care Pt. Self Management counseling: Maintenance-social rhythm, Mod caffeine/ETOH intake, Sleep hygiene, Behavior activation, Cognitive restructuring and General coping skills Medication management counseling: Effectiveness, Side effects, Dosing range, Duration, Drug interaction and Adherence Diagnosis and Prognosis Counseling: Accuracy of diagnosis, Prognosis over time, Impact of diagnosis on life functions, Impact of family relationship, Problematic behaviors secondary to diagnosis and Adequacy of current interventions Details: I spent 30 minutes reviewing the record, seeing the patient and documenting in the medical record. Counseling provided to the patient/caregiver as outlined below. Addressed patient/caregiver concerns regarding current medication regime including effective adherence. Addressed patient/caregiver concerns regarding diagnosis and prognosis including accuracy of diagnosis, prognosis over time, impact of diagnosis. Addressed patient/caregiver concerns regarding impact of recent stressors. [facility] Medical History ADHD (attention deficit hyperactivity disorder), inattentive type Encounter to establish care Post-COVID syndrome COVID-19 Chronic cough URI (upper respiratory infection) UTI (urinary tract infection) Surgical History No pertinent past surgical history Family History Mother Age: 63 No problems noted. Father No problems noted. Paternal Grandmother Breast cancer Brother No problems noted. 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 Cognitive needs: No Hearing needs: No Vision needs: Yes (contacts) Social History: Lives with 3 friends or roommates ; grew up in [place] lived with her mother brother who is 12 years older than her and her mother's boyfriend. Mother's boyfriend moved in when she was 4 years old her biological father when she was 5. 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
== END 2024-01-16 17:05 | disposition home or self-care (01) ==
LOC: HO.HOP 16:32
PROVIDERS: PCP Internal Medicine; Visit Provider Clinical Nurse Specialist Psychiatric/Mental Health
DX: F41.1 Generalized anxiety disorder (principal); F42.2 Mixed obsessional thoughts and acts; F34.1 Dysthymic disorder
CPT/HCPCS: 99214

== ENCOUNTER → 2024-01-16 16:32 | Outpatient (BNVA) | payer OTHER, SELFPAY | PROVIDERS: PCP Internal Medicine; Visit Provider Clinical Nurse Specialist Psychiatric/Mental Health ==

== ENCOUNTER 2024-01-23 12:59 | Outpatient (REF) | payer OTHER, SELFPAY ==
[2024-01-24 11:30] LABS: Bacterial Vaginosis PCR NEGATIVE (Negative); Candida Group PCR NOT DETECTED (Not Detect); Candida glab krusei PCR NOT DETECTED (Not Detect); Trichomonas vaginalis PCR NOT DETECTED (Not Detect)
[2024-01-24 12:01] LABS: CT PCR NOT DETECTED (Not Detect.); NG PCR NOT DETECTED (Not Detect.)
== END 2024-01-23 13:00 | disposition home or self-care (01) ==
LOC: HO.LAB 12:59
PROVIDERS: PCP Nurse Practitioner Family; Visit Provider Advanced Practice Midwife
DX: N89.8 Other specified noninflammatory disorders of vagina (principal); Z20.2 Contact with and (suspected) exposure to infections with a predominantly sexual mode of transmission
CPT/HCPCS: 0352U; 87491; 87591

== ENCOUNTER 2024-01-23 12:59 | Outpatient (AMB) | payer OTHER, SELFPAY ==
[2024-01-23 13:21] VITALS: BP 106/66; BMI 23.6
--- NOTE | 2024-01-23 13:21 | A.OFFVIS_ITS ---
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 She is happy with the method overall though. At the end of the visit she inquired about a small bulge that pops out of her right groin approximately once a year randomly and then she presses on it and it pops back in it does not hurt or have any associated symptoms. She is wondering what that might be I did discuss the possibility it could be an inguinal hernia and recommend she take picture of it next time it happens, and then discuss it with her primary care provider may need a surgical consult. She is not due for Pap smear as her last 1 was negative in 2021 she is sexually active so I do recommend screening for STIs [facility] Medical History ADHD (attention deficit hyperactivity disorder), inattentive type Encounter to establish care Post-COVID syndrome COVID-19 Chronic cough URI (upper respiratory infection) UTI (urinary tract infection) Surgical History No pertinent past surgical history Family History Mother Age: 63 No problems noted. Father No problems noted. Paternal Grandmother Breast cancer Brother No problems noted. 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 Cognitive needs: No Hearing needs: No Vision needs: Yes (contacts) Female Reproductive History Menstrual Age of Menarche: 10 Duration of menses: 6-7 days Date of last menstrual period: 01/16/24 control method: progestin IUCD Total pregnancies: 0 Date of last pap smear: 10/27/21 (negative) History of abnormal pap smear: No Physical Exam Vital Signs: Last Vital Signs BP 106/66 01/23/24 13:21 BMI result Body Mass Index 23.6 Const General: healthy appearing, comfortable, no acute distress, well developed and alert Nutritional Appearance: average body habitus Orientation/consciousness: patient oriented x3 Limitations: no limitations HEENT Head: Yes normocephalic Neck Neck: Yes normal visual inspection Chest Chest palpation & inspection: normal inspection of the chest Breast/axilla inspection: normal inspection of the breasts and normal inspection of the axillae Breast/axilla palpation: normal palpation of the breasts and normal palpation of the axillae Resp Effort & Inspection: normal respiratory effort GI Inspection: Yes normal to inspection, No Abdominal wall edema and No distended Palpation (GI): Soft to palpation and nontender Other: External exam within normal limits vagina pink and moist nulliparous cervix is pink smooth healthy with Kyleena string extending about 2 cm from os. Uterus is small midposition mobile nontender adnexa nontender no bulge appreciated anywhere good tone with Kegel. General: Yes bladder normal to palpation External Female Exam: normal external appearance and normal appearance of the urethra Speculum Exam - Vagina: normal appearance of the vagina, normal palpation and normal vaginal discharge Speculum Exam - Cervix: normal appearance of the cervix, normal palpation and nontender Bimanual exam- vagina & uterus: normal bimanual exam, normal palpation, uterine size normal, bladder normal to palpation, consistency normal, normal palpation, uterine mobility normal, uterine shape normal, No Cervical tenderness present, non-tender and no cervical motion tenderness Bimanual Exam- Adnexa, other: normal adnexae, no masses, normal and No adnexal tenderness Neuro General: patient oriented x3 Results Reviewed Results Reviewed: Name: Lillie Douglas Age/Sex: 21/F Attending: Felipa Barry CNM : 2000 Submitted by: Felipa Barry CNM Copies to: MR #: [id number] Status: DEP REF Collected: 10/23/21 Location: .LAB Received: 10/27/21 Interpretation Satisfactory for evaluation. Blood. Negative for intraepithelial lesion or malignancy. Clinical Information LMP: 10/20/2021 Previous PAP test: No previous PAP Material Received ThinPrep Cervical Electronically Signed By: ROSEANNA Zuleta (ASCP) 11/09/21 1539 The Pap Test is a screening procedure with the inherent possibility of both false negative and false positive results. Results should be interpreted in the context of historic and current clinical findings. Reliability of the Pap Test is enhanced by performing the test on a regular repetitive basis. Patient: Lillie Douglas Age/Sex: 21/F MR#: [id number] Page 1 of 1 Assessment & Plan Assessment & Plan (1) Cervical cancer screening: Comment: 10/27/21 pap = neg Code(s): Z12.4 - Encounter for screening for malignant neoplasm of cervix Category: Medical (2) Well woman exam with routine gynecological exam: Code(s): Z01.419 - Encounter for gynecological examination (general) (routine) without abnormal findings Category: Medical (3) Encounter for routine checking of intrauterine contraceptive device (IUD): Comment: has Kyleena iud inserted 2021. 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 She is happy with the method overall though. At the end of the visit she inquired about a small bulge that pops out of her right groin approximately once a year randomly and then she presses on it and it pops back in it does not hurt or have any associated symptoms. She is wondering what that might be I did discuss the possibility it could be an inguinal hernia and recommend she take picture of it next time it happens, and then discuss it with her primary care provider --she may need a surgical consult. 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 She is happy with the method overall though. At the end of the visit she inquired about a small bulge that pops out of her right groin approximately once a year randomly and then she presses on it and it pops back in it does not hurt or have any associated symptoms. She is wondering what that might be I did discuss the possibility it could be an inguinal hernia and recommend she take picture of it next time it happens, and then discuss it with her primary care provider may need a surgical consult. She is not due for Pap smear as her last 1 was negative in 2021 she is sexually active so I do recommend screening for STIs Coding Level of Care Code Est Pt Prev Care 18-39y(20235) Diagnoses Cervical cancer screening Z12.4 Well woman exam with routine gynecological exam Z01.419 Encounter for routine checking of intrauterine contraceptive device (IUD) Z30.431
== END 2024-01-23 13:48 | disposition home or self-care (01) ==
PROVIDERS: PCP Nurse Practitioner Family; Visit Provider Advanced Practice Midwife
DX: Z12.4 Encounter for screening for malignant neoplasm of cervix (principal); Z01.419 Encounter for gynecological examination (general) (routine) without abnormal findings; Z30.431 Encounter for routine checking of intrauterine contraceptive device
CPT/HCPCS: 99395

== ENCOUNTER 2024-05-31 13:48 | Outpatient (AMB) | payer OTHER, SELFPAY ==
--- NOTE | 2024-05-31 13:57 | MHC.OFFWIV ---
Intake Vital Signs 05/31/24 14:03 Weight 151 lb BP 110/60 Blood Pressure Location Rt brachial Position Sitting Pulse 74 Pulse Source Pulse Oximeter Temp 98.3 F Temp Source Oral Pulse Oximetry (%) 98 Oxygen Delivery Method Room Air Intake Visit Reasons: EP pain in Intake Note: Patient here for left ear pain that has been present for a couple of weeks but has worsened over the past couple of days. Patient Tobacco Use Status: Never used Tobacco Allergies No Known Allergies Allergy (Verified 05/31/24 14:04) Do you need a note to return to daycare/school/sports/work: No HPI HPI Comments History of Present Illness Details 24 y/o female patient who presents to the walk in clinic with c/o left ear pain x 2 weeks now. [facility] Medical History (Updated 05/31/24 @ 14:12 by Shelby Ernandez NP) Otitis media with effusion ADHD (attention deficit hyperactivity disorder), inattentive type Encounter to establish care Post-COVID syndrome COVID-19 Chronic cough URI (upper respiratory infection) UTI (urinary tract infection) Surgical History No pertinent past surgical history Family History Mother Age: 63 No problems noted. Father No problems noted. Paternal Grandmother Breast cancer Brother No problems noted. 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 Cognitive needs: No Hearing needs: No Vision needs: Yes (contacts) Female Reproductive History Menstrual Age of Menarche: 10 Review of Systems Const All systems reviewed & are unremarkable except as noted in HPI and below Physical Exam Vital Signs: Last Vital Signs Temp 98.3 F 05/31/24 14:03 Pulse 74 05/31/24 14:03 BP 110/60 05/31/24 14:03 Pulse Ox 98 05/31/24 14:03 Oxygen Delivery Method Room Air 05/31/24 14:03 Const General: cooperative, comfortable and no acute distress Orientation/consciousness: patient oriented x3 HEENT Head: Yes normocephalic Ears: external ears normal and TM abnormal bulging on the left, wth effusion, erythematous on the left, with fluid behind the TM bilateral and retracted on the left General nose exam: Normal external nose present Mouth: moist mucous membranes Resp Effort & Inspection: normal respiratory effort Auscultation: clear to auscultation bilaterally Cardio Heart sounds: S1 normal heart sound present and S2 normal heart sound present Neuro General: patient oriented x3 Assessment & Plan Assessment & Plan (1) Otitis media with effusion: Code(s): H65.90 - Unspecified nonsuppurative otitis media, unspecified ear Qualifiers: Laterality: left Qualified Code(s): H65.92 - Unspecified nonsuppurative otitis media, left ear Plan: Ordered Abx ear drops Acetaminophen for pain relief. Medications: New ciprofloxacin-dexamethasone 0.3-0.1 % 4 drps otic (ears) BID 7.5 mL 0RF 5 days H65.92 - Unspecified nonsuppurative otitis media, left ear Coding Level of Care Code Est Pt Level 3 (41370) Diagnoses Left otitis media with effusion H65.92 Laterality: left Time Spent (min) 15
[2024-05-31 14:03] VITALS: BP 110/60; PULSE 74; TEMP 36.8; O2SAT 98
--- OUTSIDE RECORDS SUMMARY | 2024-05-31 17:39 | XMS_ITS | Clinical Summary ---
Author Organization [facility] it Address [address] [place] [address] Care Team Providers Care Impact Hammer Operator Name Role Phone Unavailable Primary Care Provider Unavailabl e Social History Tobacco Use Types Packs/Day Years Used Date Smoking Tobacco: Never Assessed Sex and Gender Information Value Date Recorded Sex Assigned at Not on file Gender Identity Not on file Sexual Orientation Not on file Plan of Treatment Health Maintenance Due Date Last Done Comments Gonorrhea/Chlamydia Screening 2000 HPV Vaccines (1 - 3-dose series) 01/28/2015 DTaP,Tdap,and Td Vaccines (1 - Tdap) 01/28/2019 Hepatitis B Vaccines (1 of 3 - 19+ 3-dose series) 01/28/2019 Cervical Cancer Screening: P ap Smear 01/28/2021 COVID-19 Vaccine ( - 2023-2 5 season) 2024 Influenza Vaccine (#1) 2024 HIB Vaccines Aged Out No longer eligi ble based on patient's age to complete this topic Hepatitis A Vaccines Aged Out No long er eligible based on patient's age to complete this topic IPV Vaccines Aged Out No longer eligi ble based on patient's age to complete this topic MMR Vaccines Aged Out No longer eligi ble based on patient's age to complete this topic Meningococcal ACWY Vaccine Aged Out N o longer eligible based on patient's age to complete this topic Pneumococcal Vaccine: Pediat rics (0 to 5 Years) and At-Risk Patients (6 to 64 Years) Aged Out No longer eligible b ased on patient's age to complete this topic RSV Immunization Patients Un carmelo 20 months Aged Out No longer eligible b ased on patient's age to complete this topic Varicella Vaccines Aged Out No longer eligible based on patient's age to complete this topic
== END 2024-05-31 14:17 | disposition home or self-care (01) ==
PROVIDERS: PCP Nurse Practitioner Family; Visit Provider Nurse Practitioner Family
DX: H65.92 Unspecified nonsuppurative otitis media, left ear (principal)

== ENCOUNTER → 2024-05-31 13:48 | Outpatient (BNVA) | payer OTHER, SELFPAY | PROVIDERS: PCP Nurse Practitioner Family ==

== ENCOUNTER 2024-09-13 13:49 | Outpatient (AMB) | payer OTHER, SELFPAY ==
--- NOTE | 2024-09-13 14:01 | MHC.PC.OV ---
Vital Signs 09/13/24 14:02 Height 5 ft 6 in Weight 148 lb 6 oz BMI 23.9 BP 132/60 Blood Pressure Location Lt brachial Position Sitting Pulse 51 Pulse Source Pulse Oximeter Temp 97.1 F Temp Source Temporal Artery Scan Pulse Oximetry (%) 99 Oxygen Delivery Method Room Air Intake Visit Reasons: Hernia Intake Note: Patient is here to follow up on Hernia. Key Person Required: No Strategic Consultant: Not Required per policy Accompanied by: Self / Same As Patient Allergies No Known Allergies Allergy (Verified 09/13/24 14:02) Tobacco use date assessed: 09/13/24 Dental Screening Dental Screen Date: 09/13/24 Did you have a dental visit in the last 12 months?: Yes Did you have a dental problem in the last 6 months where you did not have access to dental care?: No Was dental information given to patient?: Patient has dentist [facility] Medical History (Updated 09/13/24 @ 14:43 by Harry Thakkar MD) Low back pain Otitis media with effusion ADHD (attention deficit hyperactivity disorder), inattentive type Encounter to establish care Post-COVID syndrome COVID-19 Chronic cough URI (upper respiratory infection) UTI (urinary tract infection) Surgical History No pertinent past surgical history Family History Mother Age: 64 No problems noted. Father No problems noted. Paternal Grandmother Breast cancer Brother No problems noted. 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 Cognitive needs: No Hearing needs: No Vision needs: Yes (contacts) Female Reproductive History Menstrual Age of Menarche: 10 Questionnaire PHQ-9 Over the last 2 weeks, how often have you been bothered by any of the following problems? 1. Little interest or pleasure in doing things: not at all 2. Feeling down, depressed, or hopeless: not at all 3. Trouble falling or staying asleep, or sleeping too much: not at all 4. Feeling tired or having little energy: not at all 5. Poor appetite or overeating: not at all 6. Feeling bad about yourself - or that you are a failure or have let yourself or your family down: not at all 7. Trouble concentrating on things, such as reading the newspaper or watching television: not at all 8. Moving or speaking so slowly that other people could have noticed. Or the opposite - being so fidgety or restless that you have been moving around a lot more than usual: not at all 9. Thoughts that you would be better off or of hurting yourself in some way: not at all Total score: 0 Depression Screening Interpretation: Negative Depression Screening Done: Yes Source: Developed by Drs. Caleb العراقي, Beth Sheehan, Madhu Guerrero and colleagues, with an educational mary from [employer]. Thrive Questionnaire Date Thrive assessed: 09/12/24 I am a: Patient What is your living situation today?: I have a steady place to live Within the past 12 months, did the food you bought not last and you didn't have the money to get more?: Never true Within the past 12 months, did you worry whether your food would run out before you got money to buy more?: Never true Do you have trouble paying for medicines?: No Do you have trouble getting transportation to medical appointments?: No Do you have trouble paying your heating and electricity bill?: No Do you have trouble taking care of your child, family member or friend?: No Do you have trouble with day-to-day activities such as bathing, preparing meals, shopping, managing finances, etc.?: No Are you currently unemployed and looking for a job?: No Are you interested in more education?: No Please select the resources that you would like help with: None Currently or been in a relationship where the following occur: No concerns reported THRIVE Score: 0 AUDIT C Alcohol Use Questionnaire (AUDIT-C) 1. How often do you have a drink containing alcohol?: Monthly or less 2. How many drinks containing alcohol do you have on a typical day when you are drinking?: 1 or 2 3. How often do you have six or more drinks on one occasion?: Never Total Score: 1 YUDELKA-7 AMB Questionnaire YUDELKA-7 Date YUDELKA - 7 assessed: 09/13/24 Feeling nervous, anxious, or on edge: 0 = Not at all Not being able to stop or control worryin = Not at all Worrying too much about different things: 0 = Not at all Trouble relaxin = Not at all Being so restless that it is hard to sit still: 0 = Not at all Becoming easily annoyed or irritable: 0 = Not at all Feeling afraid as if something awful might happen: 0 = Not at all Total YUDELKA-7 score (0-4 normal; 5-9 mild; 10-14 moderate; 15-21 severe): 0 Source: Developed by Drs. Caleb العراقي, Beth Sheehan, Madhu Guerrero and colleagues, with an educational mary from [employer]. Physical exam (Primary Care) Vital Signs: Last Vital Signs Temp 97.1 F 09/13/24 14:02 Pulse 51 09/13/24 14:02 BP 132/60 09/13/24 14:02 Pulse Ox 99 09/13/24 14:02 Oxygen Delivery Method Room Air 09/13/24 14:02 BMI result Body Mass Index 23.9 Tobacco/Smoking Status: Tobacco use Status Tobacco use date assessed 09/13/24 09/13/24 14:06 Patient Tobacco Use Status Never used Tobacco 09/13/24 14:06 e-Cigarette/Vaping Use Former Use 09/13/24 14:06 PHQ-9: PHQ-9 Score PHQ-9: Total score 0 09/13/24 14:46 Depression Screening Interpretation: Negative Thrive Assessment: Date of Thrive Assessment Date Thrive assessed 09/12/24 09/13/24 14:06 Currently or been in a relationship where the following occur: No concerns reported Coding Level of Care Code Est Pt Level 4 (55426) Complex EM visit Add On G2211 Diagnoses Anxiety F41.9 Low back pain M54.50 Inguinal hernia K40.90 Assessment & Plan Assessment & Plan (1) Anxiety: Code(s): F41.9 - Anxiety disorder, unspecified Category: Medical Plan: Symptoms are well controlled on Sertraline. Continue meds at same dosage. (2) Low back pain: Code(s): M54.50 - Low back pain, unspecified Category: Medical Plan: X ray images revd with patient. Emphasized the importance of stretching exercise. (3) Inguinal hernia: Code(s): K40.90 - Unilateral inguinal hernia, without obstruction or gangrene, not specified as recurrent Plan: Examined with a female medical sales in the room. No hernia identified. Patient share a picture of her standing and a clear lump is visible in the right inguinal area. US has been requested. Plan History of Present Illness The patient is a 24-year-old female presenting with back pain, inguinal hernia symptoms, and a history of anxiety. She has mild degenerative spinal changes. Hip pain is noted, often exacerbated by extended periods of walking or standing, and there has been an increase in inguinal hernia symptoms with activities such as twisting or coughing. Her anxiety is managed on Zoloft, with noted improvement. 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 - Exercise: Advised to engage in regular back and stretching exercises, such as yoga, to maintain spinal health Review of Systems - Musculoskeletal: Reports back and hip pain exacerbated by prolonged standing or walking - Gastrointestinal: Reports increased frequency of a hernia protrusion when standing and twisting - Psychiatric: Reports improved anxiety management with Zoloft Physical Exam General: Cooperative and healthy appearing Nutritional Appearance: Well nourished Orientation/consciousness: Patient oriented x3 Limitations: No limitations Head: Normal to inspection General: Appearance normal, both eyes and all related structures Neck: Normal visual inspection Chest: Normal palpation of entire chest wall Respiratory: Normal respiratory effort Neurology: Patient oriented x3 Results Plan 1. Degenerative Changes Of The Spine - Engage in regular stretching and yoga. 2. Hip Pain - Modifications advised for prolonged standing/walking. 3. Inguinal Hernia - Assess and consider further surgical evaluation. 4. Anxiety Disorder - Continue Zoloft and monitor effectiveness. Discussion Notes We discussed the presence of mild spinal degeneration and emphasized the need for regular physical activities to help manage her pain, particularly exercise like yoga. The increase in hernia symptoms was also addressed, considering the need for further physical examination and potential surgical intervention depending on the assessment findings. Regarding her anxiety, I confirmed her current regime being effective and will continue it, ensuring regular monitoring. Patient Instructions - Perform regular back and stretching exercises, including yoga. - Avoid prolonged walking or standing when possible to ease hip pain. - Observe the hernia and inform if symptoms worsen or if significant changes occur. - Continue Zoloft as prescribed and maintain follow-up appointments for anxiety management. Orders: Orders US pelvic limited 09/13/24 K40.90 - Unilateral inguinal hernia, without obstruction or gangrene, not specified as recurrent
[2024-09-13 14:02] VITALS: BP 132/60; PULSE 51; TEMP 36.2; O2SAT 99; BMI 23.9
--- OUTSIDE RECORDS SUMMARY | 2024-09-13 14:30 | XMS_ITS ---
Author Organization [facility]. Address [address] [place] [phone] Care Team Providers Care Temper Mill Operator Name Role Phone Zechariah ARTEAGA, Muriel Primary Care Provider zMigration, Provider Unavailable Unavailable REASON FOR VISIT Multum To Medispan Conversion Encounter Medications Medication SIG (Take, Route, Frequency, Duration) Notes Start Date End Date Status Sprintec 28 0.25-35 MG-MCG 1 tab(s) oral ly once a day for 84 Active Encounters Encounter Location Date Provider Diagnosis [facility]. [address] [place] [address] [phone] 06/17/2024 Provider zMigration Plan Of Treatment Medication Medication Name Sig Start Date Stop Date Notes Sprintec 28 0.25-35 MG-MCG 1 tab(s) oral ly once a day for 84 Progress Notes * Ruthie DOUGLASB: 000 (24 yo F)Acc No.[id number]:06/17/2024 Patient:?Lillie DOUGLAS Provider:? :2000???Age:24 Y???Sex:Female D ate:06/17/2024 Phone: Address:[address] [place] [address], [id number] Pcp:Muriel Apple MD Subjective: * Chief Complaints: * ???1. Multum To Medispan Con version Encounter. * Medical History:? Objective: * Vitals:? Assessment: Plan: * Treatment: * * Sign off status: Completed true * Provider:? Date:?06/17/2024 Generated for Sacha hernandez/Lacey/Melquiades on:?09/13/2024 02:30 PM EDT
--- OUTSIDE RECORDS SUMMARY | 2024-09-13 14:30 | XMS_ITS | Clinical Summary ---
[facility] Organization [facility] it Address [address] [place] [address] Care Team Providers Care Traffic Control Officer Name Role Phone Unavailable Primary Care Provider Unavailabl e Social History Tobacco Use Types Packs/Day Years Used Date Smoking Tobacco: Never Assessed Comments Unknown Sex and Gender Information Value Date Recorded Sex Assigned at Not on file Legal Sex Female 11:03 PM EST Gender Identity Not on file Sexual Orientation [...] - 2023-2 5 season) 2024 Influenza Vaccine (Season Ended) 2024 HIB Vaccines Aged Out No longer [...] patient's age to complete this topic Meningococcal B Vaccine Aged Out No l onger eligible based on patient's age to complete [...]
--- OUTSIDE RECORDS SUMMARY | 2024-09-13 14:30 | XMS_ITS | Patient Health Record ---
Author Organization [facility] Address [address] [place] [phone] Care Team Providers Care Sales Designer Name Role Phone Muriel Apple MD Primary Care Provider zMigration, Provider Unavailable Unavailable Allergies No Known Allergies Reason For Referral No Information Medications Medication SIG (Take, Route, Frequency, Duration) Notes Start Date End Date Status Sprintec 28 0.25-35 MG-MCG 1 tab(s) oral ly once a day for 84 Active Social History Tobacco Use: Social History Observation Description Date Details (start date - stop date) Never Smoker NA - NA Tobacco use (structured) Question Answer Notes Tobacco Use: Never tobacco user Encounters Encounter Location Date Provider Diagnosis [facility] [address] [place] [phone] 06/17/2024 Provider zMigration Plan Of Treatment Pending Test Test Name Order Date BMP (Basic Metabolic Panel) 10/04/2018 BMP (Basic Metabolic Panel) 09/23/2020 CBC with differential/platelet 1 CBC with differential/platelet 9 Lipid Panel (Chol, Trig, HDL, LDL) 10/04 Lipid Panel (Chol, Trig, HDL, LDL) 09/23 .Urinalysis 08/09/2019 Chlamydia trac Probe (URINE) 09/23/2020 Chlamydia trac Probe (URINE) 10/04/2018 URINE CULTURE 08/09/2019 Insurance Providers Payer Name Payer Address Payer Phone Subscriber Number Group Number Insured Name Patient Relationship to Insured Coverage Start Date Coverage End Date [facility] [address] [place] [address] [phone] [id number] Lillie Douglas Self - patient is the insured Medical (General) History Medical History History ICD Code [place] teeth removed age 14 Reno's palsy age 5
== END 2024-09-13 14:36 | disposition home or self-care (01) ==
LOC: HO.HMCH 13:50
PROVIDERS: PCP Nurse Practitioner Family; Visit Provider Internal Medicine
DX: F41.9 Anxiety disorder, unspecified (principal); M54.50 Low back pain, unspecified; K40.90 Unilateral inguinal hernia, without obstruction or gangrene, not specified as recurrent

== ENCOUNTER → 2024-09-13 13:49 | Outpatient (BNVA) | payer OTHER, SELFPAY | PROVIDERS: PCP Nurse Practitioner Family; Visit Provider Internal Medicine | DX: Z13.89 Encounter for screening for other disorder (principal) ==

== ENCOUNTER 2024-10-18 14:59 | Outpatient (REF) | payer OTHER, SELFPAY ==
--- NOTE | ~2024-10-18 | US_ITS ---
EXAMINATION: US RIGHT INGUINAL, LIMITED/FOLLOW UP CLINICAL INFORMATION: Concerning right inguinal hernia COMPARISON: None available. TECHNIQUE: Real-time ultrasound in the right inguinal region with a linear transducer using grayscale and color Doppler technique. Valsalva maneuvers applied. FINDINGS: No gross fluid collections. No gross solid lesion. No protrusion of the intra-abdominal contents. US/US pelvic limited IMPRESSION: Negative exam. Electronically signed by: Antony Sen MD 10/18/2024 03:22 PM EDT
--- OUTSIDE RECORDS SUMMARY | 2024-10-18 16:19 | XMS_ITS | Patient Health Record ---
Author Organization [email or web address] Address [address] [place] [address] [phone] Care Team Providers Care Qa Architect Name Role Phone Muriel Apple MD Primary [...] Location Date Provider Diagnosis [email or web address] [address] [place] [address] [phone] 06/17/2024 Provider zMigration Plan Of Treatment Pending [...] Insured Coverage Start Date Coverage End Date [facility] [address] [place] [address] [phone] [id number] Lillie Douglas Self - patient is the insured Medical (General) History Medical History History ICD Code Brutus teeth removed age 14 Reno's palsy age 5
== END 2024-10-18 15:00 | disposition home or self-care (01) ==
LOC: HO.US 14:59
PROVIDERS: PCP Internal Medicine; Visit Provider Internal Medicine
DX: K40.90 Unilateral inguinal hernia, without obstruction or gangrene, not specified as recurrent (principal)
CPT/HCPCS: 76857

== ENCOUNTER → 2024-10-18 15:01 | Outpatient (BNV) | payer OTHER, SELFPAY | PROVIDERS: PCP Internal Medicine; Visit Provider Radiology Diagnostic Radiology | DX: K40.30 Unilateral inguinal hernia, with obstruction, without gangrene, not specified as recurrent (principal) | CPT/HCPCS: 76857 ==

== ENCOUNTER 2025-01-02 08:01 | Outpatient (AMB) | payer OTHER, SELFPAY ==
--- NOTE | 2025-01-02 08:01 | A.OFFPC_ITS ---
Vital Signs 01/02/25 08:02 Height 5 ft 6 in Weight 145 lb BMI 23.4 BP 100/64 Blood Pressure Location Lt brachial Position Sitting Respiration 16 Pulse 57 Pulse Source Pulse Oximeter Temp 97.8 F Temp Source Temporal Artery Scan Pulse Oximetry (%) 96 Oxygen Delivery Method Room Air Intake Visit Reasons: Annual exam Cardiac Cath Lab Manager Required: No Accompanied by: Self / Same As Patient Allergies No Known Allergies Allergy (Verified 01/02/25 08:02) Tobacco use date assessed: 09/13/24 Dental Screening Dental Screen Date: 09/13/24 HPI HPI Comments History of Present Illness Details The patient is a 24-year-old female presenting for an annual physical examination. A past concern was a suspected hernia, which she felt for years, particularly exacerbated during a move to a different apartment. Symptoms included discomfort and, for a brief period, swelling in the groin area aggravated by activities such as coughing but have since resolved. An ultrasound conducted showed no abnormal findings, and currently, the hernia does not protrude. The patient has a history of chronic low back pain secondary to scoliosis, described as more prominent in the upper center of her spine, leading to muscular discomfort, stiffness, and discomfort with posture-related strain. She has been ameliorating symptoms with focus on posture and activity without significant flare. The patient experiences anxiety, for which she is on sertraline, originally prescribed by another physician and currently managed by a psychiatrist. The medication has been helpful, and the patient reports a decreased level of anxiety. She receives ADHD medications through her psychiatrist and reports their helpfulness, although some symptoms of discomfort and difficulty concentration persist occasionally. The medical history also reveals occasional alcohol use, about 1 or 2 drinks per occurrence, with consumption not exceeding twice a month. Past instances of more than six drinks at a time were not recent. Occasionally she experiences symptoms that align with potential iron deficiency, such as mild bruising and fatigue, without any significant heavy menstrual bleeding or nosebleeds. A history of mild thrombocytopenia was identified, and upcoming blood work is anticipated. She denies other systemic symptoms such as nausea, chest discomfort, or respiratory concerns. Medical History: - Scoliosis - Anxiety treated with Sertraline - ADHD managed with psychiatric medicati ons - History of mild thrombocytopenia Medications: - Sertraline for anxiety - ADHD medications prescribed by a psych iatrist (e.g., Lisdexamfetamine) Social: - Lives with significant other - Occasional alcohol use: 1 to 2 drinks, not more than once or twice a month - Reports being physically active but no t as much as desired - Occasional marijuana use, no tobacco o r illicit drug use reported - Employment and living environment not discussed [facility] Medical History (Updated 01/02/25 @ 08:46 by Alexis Delgado MD) Scoliosis Thrombocytopenia ADHD Low back pain Otitis media with effusion ADHD (attention deficit hyperactivity disorder), inattentive type Encounter to establish care Post-COVID syndrome COVID-19 Chronic cough URI (upper respiratory infection) UTI (urinary tract infection) Surgical History No pertinent past surgical history Family History Mother Age: 64 No problems noted. Father No problems noted. Paternal Grandmother Breast cancer Brother No problems noted. 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 Cognitive needs: No Hearing needs: No Vision needs: Yes (contacts) Female Reproductive History Menstrual Age of Menarche: 10 Questionnaire PHQ-9 Over the last 2 weeks, how often have you been bothered by any of the following problems? 1. Little interest or pleasure in doing things: not at all 2. Feeling down, depressed, or hopeless: not at all 3. Trouble falling or staying asleep, or sleeping too much: not at all 4. Feeling tired or having little energy: several days 5. Poor appetite or overeating: several days 6. Feeling bad about yourself - or that you are a failure or have let yourself or your family down: not at all 7. Trouble concentrating on things, such as reading the newspaper or watching television: several days 8. Moving or speaking so slowly that other people could have noticed. Or the opposite - being so fidgety or restless that you have been moving around a lot more than usual: not at all 9. Thoughts that you would be better off or of hurting yourself in some way: not at all Total score: 3 Depression Screening Interpretation: Negative Depression Screening Done: Yes 77746 - PHQ-9 Billing: Yes Source: Developed by Drs. Caleb العراقي, Beth Sheehan, Madhu Guerrero and colleagues, with an educational mary from [employer] Thrive Questionnaire Date Thrive assessed: 01/02/25 I am a: Patient What is your living situation today?: I have a steady place to live Within the past 12 months, did the food you bought not last and you didn't have the money to get more?: Never true Within the past 12 months, did you worry whether your food would run out before you got money to buy more?: Never true Do you have trouble paying for medicines?: No Do you have trouble getting transportation to medical appointments?: No Do you have trouble paying your heating and electricity bill?: No Do you have trouble taking care of your child, family member or friend?: No Do you have trouble with day-to-day activities such as bathing, preparing meals, shopping, managing finances, etc.?: No Are you currently unemployed and looking for a job?: No Are you interested in more education?: No THRIVE Score: 0 AUDIT C Alcohol Use Questionnaire (AUDIT-C) 1. How often do you have a drink containing alcohol?: Monthly or less 2. How many drinks containing alcohol do you have on a typical day when you are drinking?: 1 or 2 3. How often do you have six or more drinks on one occasion?: Never Total Score: 1 Score Reviewed/Action Taken: Yes YUDELKA-7 AMB Questionnaire YUDELKA-7 Date YUDELKA - 7 assessed: 01/02/25 Feeling nervous, anxious, or on edge: 1 = Several days Not being able to stop or control worryin = Several days Worrying too much about different things: 1 = Several days Trouble relaxin = Several days Being so restless that it is hard to sit still: 0 = Not at all Becoming easily annoyed or irritable: 1 = Several days Feeling afraid as if something awful might happen: 1 = Several days Total YUDELKA-7 score (0-4 normal; 5-9 mild; 10-14 moderate; 15-21 severe): 6 Source: Developed by Drs. Caleb العراقي, Beth Sheehan, Madhu Guerrero and colleagues, with an educational mary from [employer] YUDELKA-7 Assessment Billing YUDELKA-7 Assessment Tool: YUDELKA-7 Assessment 54166 Review of Systems Const Details: - Constitutional: Denies any fever or weight changes - Cardiovascular: Denies chest pain - Respiratory: Denies cough or shortness of breath - Gastrointestinal: Denies nausea, vomiting, diarrhea, or changes in bowel habits - Neurological: Denies headaches or weakness - Musculoskeletal: Reports chronic low back pain and scoliosis-related discomfort - Psychiatric: Reports reduced anxiety on medication, occasional restlessness, and difficulty concentrating All systems reviewed & are unremarkable except as noted in HPI and below Physical exam (Primary Care) Vital Signs: Last Vital Signs Temp 97.8 F 01/02/25 08:02 Pulse 57 01/02/25 08:02 Resp 16 01/02/25 08:02 BP 100/64 01/02/25 08:02 Pulse Ox 96 01/02/25 08:02 Oxygen Delivery Method Room Air 01/02/25 08:02 BMI result Body Mass Index 23.4 Tobacco/Smoking Status: Tobacco use Status Tobacco use date assessed 09/13/24 01/02/25 08:09 Patient Tobacco Use Status Never used Tobacco 01/02/25 08:09 e-Cigarette/Vaping Use Former Use 01/02/25 08:09 PHQ-9: PHQ-9 Score PHQ-9: Total score 3 01/02/25 08:17 Depression Screening Interpretation: Negative Thrive Assessment: Date of Thrive Assessment Date Thrive assessed 01/02/25 01/02/25 08:17 Const Other: General: Alert and oriented, Well nourished, No acute distress. Eye: Pupils are equal, round and reactive to light, Intact accommodation, Extraocular movements are intact, Normal conjunctiva, Vision unchanged. HENT: Normocephalic, Atraumatic, Tympanic membranes are clear, Normal hearing, Oral mucosa is moist, No pharyngeal erythema, Ear canals patent. Respiratory: Lungs CTA bilaterally, No wheeze, Respirations are non-labored. Cardiovascular: Regular rate, Regular rhythm, S1 auscultated, S2 auscultated, No murmur, Good pulses equal in all extremities, Normal peripheral perfusion, No edema. Gastrointestinal: Soft, Non-tender, Non-distended, Normal bowel sounds, No organomegaly. Hernia noted near the groin area, no current protrusion with cough. Musculoskeletal: Normal range of motion, Normal strength, No tenderness, No swelling, No deformity, Normal gait. Muscles hypertrophied on the left shoulder. Integumentary: Warm, Dry, [place], Intact. Neurologic: Alert, Oriented, Normal sensory, Normal motor function, No focal defects, Cranial Nerves II-XII are grossly intact, Normal deep tendon reflexes. Psychiatric: Cooperative, Appropriate mood & affect, Normal judgment. Reports occasional anxiety, managed with sertraline. Coding Level of Care Code Est Pt Level 4 (33347) New Pt Prev Care 18-39yr(55679 Diagnoses Annual physical exam Z00.00 Anxiety F41.9 ADHD F90.9 Thrombocytopenia D69.6 Scoliosis M41.9 Additional Codes YUDELKA-7 Assessment Billing - YUDELKA-7 Assessment Tool: YUDELKA-7 Assessment 01683 ([id number]) PHQ-9 - 67277 - PHQ-9 Billing: Yes ([id number]) Assessment & Plan Assessment & Plan (1) Annual physical exam: Comment: - Obtain Baseline Labs Code(s): Z00.00 - Encounter for general adult medical examination without abnormal findings Category: Medical (2) Anxiety: Comment: - Continue current dose of Sertraline under the psychiatrist's supervision - Reinforce not abruptly discontinuing medication and support continued mental health monitoring Code(s): F41.9 - Anxiety disorder, unspecified Category: Medical (3) ADHD: Comment: - Continue prescribed treatment by the psychiatrist - Offer support and monitoring for ADHD symptoms management Code(s): F90.9 - Attention-deficit hyperactivity disorder, unspecified type Category: Medical (4) Thrombocytopenia: Comment: - Conduct follow-up blood smear for more detailed platelet evaluation (Last platelet count at 140 - Monitor bleeding symptoms closely Code(s): D69.6 - Thrombocytopenia, unspecified Category: Medical (5) Scoliosis: Comment: - Encourage consistent exercise, posture management, and shoulder strengthening exercises - Avoid dependency on medication for pain; alternative management with physical activity Code(s): M41.9 - Scoliosis, unspecified Category: Medical Plan During the visit, we had a comprehensive discussion on the patient?s history concerning hernias, which no longer presents with symptoms and was deemed negati ve on ultrasound examination. The management of scoliosis was addressed through emphasis on physical activity and postural exercises. Assuring the patient of the minor nature of her scoliosis, we also touched on mental health medications being handled by her psychiatrist for both anxiety and ADHD, including the importance of not discontinuing sertraline abruptly. We ordered blood work to further explore the low platelet count, as complaints of minor bruising and the possibility of iron deficiency were raised. We addressed social history, noting minimal alcohol use, and emphasized the continuation of health maintenance strategies, including screenings for HIV, syphilis, and hepatitis, while ensuring vaccinations are up-to-date. Orders: Orders Comprehensive Met. Panel Today Z00.00 - Encounter for general adult medical examination without abnormal findings Hemoglobin A1c Today Z00.00 - Encounter for general adult medical examination without abnormal findings Hepatitis A,B,C Profile Today Z00.00 - Encounter for general adult medical examination without abnormal findings HIV Ab/Ag Today Z00.00 - Encounter for general adult medical examination without abnormal findings Lipid Panel Today Z00.00 - Encounter for general adult medical examination without abnormal findings Complete Blood Count Man Dif Today Z00.00 - Encounter for general adult medical examination without abnormal findings Syphilis Screen Today Z00.00 - Encounter for general adult medical examination without abnormal findings TSH reflex Free T4 Today Z00.00 - Encounter for general adult medical examination without abnormal findings Vitamin D 25-OH Total Today Z00.00 - Encounter for general adult medical examination without abnormal findings Patient Instructions: - Keep being active and practice posture exercises to help with scoliosis. - Stay on your current medication plan unless advised by your psychiatrist. - Follow up if you notice any new or worsening symptoms. - Expect a follow-up on blood work to check your platelets exactly. - Limit alcohol consumption to safe levels. - Keep your vaccinations updated and attend scheduled screenings.
[2025-01-02 08:02] VITALS: BP 100/64; PULSE 57; RESP 16; TEMP 36.6; O2SAT 96; BMI 23.4
--- OUTSIDE RECORDS SUMMARY | 2025-01-02 08:21 | XMS_ITS | Patient Health Record ---
Author Organization [facility] Address [address] [place] [phone] Care Team Providers Care Supervisor Road Administrator Name Role Phone Muriel Apple MD Primary Care Provider zMigration, Provider Unavailable Unavailable Allergies No Known Allergies Reason For Referral No Information Medications Medication SIG (Take, Route, Frequency, Duration) Notes Start Date End Date Status Sprintec 28 0.25-35 MG-MCG 1 tab(s) oral ly once a day; Duration: 84 Active Social History Tobacco Use: Social History Observation Description Date Details (start date - stop date) Never Smoker NA - NA Tobacco use (structured) Question Answer Notes Tobacco Use: Never tobacco user Encounters Encounter Location Date Provider Diagnosis [facility] 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
--- OUTSIDE RECORDS SUMMARY | 2025-01-02 08:21 | XMS_ITS | Clinical Summary ---
[facility] Organization [facility] it Address [address] [place] [address] Care Team Providers Care Boom Stick Worker Name Role Phone Unavailable Primary Care Provider [...] Cervical Cancer Screening: P ap Smear 01/28/2021 Depression Screening 05/02/2024 COVID-19 Vaccine ( - 2023-2 5 season) [...] 5 Years) and At-Risk Patients (6 to 49 Years) Aged Out No longer eligible b ased on patient's age to complete this topic RSV Immunization Patients Un carmelo 20 months Aged Out No longer eligible b ased on patient's age to complete this topic Varicella Vaccines Aged Out No longer eligible based on patient's age to complete this topic
== END 2025-01-02 08:29 | disposition home or self-care (01) ==
LOC: HO.HMCHD 08:03
PROVIDERS: PCP Student in an Organized Health Care Education/Training Program; Visit Provider Student in an Organized Health Care Education/Training Program
DX: Z00.00 Encounter for general adult medical examination without abnormal findings (principal); F41.9 Anxiety disorder, unspecified; F90.9 Attention-deficit hyperactivity disorder, unspecified type; D69.6 Thrombocytopenia, unspecified; M41.9 Scoliosis, unspecified

== ENCOUNTER → 2025-01-02 08:01 | Outpatient (BNVA) | payer OTHER, SELFPAY | PROVIDERS: PCP Student in an Organized Health Care Education/Training Program; Visit Provider Student in an Organized Health Care Education/Training Program | DX: Z13.30 Encounter for screening examination for mental health and behavioral disorders, unspecified (principal); Z13.31 Encounter for screening for depression | CPT/HCPCS: 96127 ==

== ENCOUNTER 2025-04-10 11:02 | Outpatient (REF) | payer OTHER, SELFPAY ==
[2025-04-10 22:39] LABS: Bacterial Vaginosis PCR POSITIVE (Negative); Candida Group PCR NOT DETECTED (Not Detect); Candida glab krusei PCR NOT DETECTED (Not Detect); Trichomonas vaginalis PCR NOT DETECTED (Not Detect)
--- OUTSIDE RECORDS SUMMARY | 2025-04-10 22:41 | XMS_ITS | Patient Health Record ---
Author Organization [facility]. Address [address] [place] [phone] Care Team Providers Care Administrative Assistant Office Manager Name Role Phone Muriel Apple MD Primary Care Provider zMigration, Provider Unavailable Unavailable Allergies No Known Allergies Reason For Referral No Information Medications Medication SIG (Take, Route, Frequency, Duration) Notes Start Date End Date Status Sprintec 28 0.25-35 MG-MCG Tablet 1 tab(s) orally once a day; Duration: 84 Active Social History Tobacco Use: Social History Observation Description Date Details (start date - stop date) Never Smoker NA - NA Social History Social History Social Info Question Answer Notes Tobacco use (structured) Date of assessment: Tobacco Use: Never tobacco user Sexual History: (structured) Sexually Active: Yes Screened for Chlamydia: Yes Date of screening, if known: 08/2020 Additional Details Category Social Info Options Details Social History 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 [address] [place] [phone] 06/17/2024 Provider zMigration Plan Of Treatment Pending [...] Insured Coverage Start Date Coverage End Date [facility] Henny Jamil [address] [address] [place] [address] [id number] Lillie Douglas Self - patient is the insured Medical (General) History Medical History History ICD Code [place] teeth removed age 14 [place]'s palsy age 5
--- OUTSIDE RECORDS SUMMARY | 2025-04-10 22:41 | XMS_ITS | Clinical Summary ---
Author Organization [facility] it Address [address] [place] [address] Care Team Providers Care Perfume And Toilet Water Maker Name Role Phone Unavailable Primary Care Provider Unavailabl e Social History Tobacco Use Types Packs/Day Years Used Date Smoking Tobacco: Never Assessed Comments Unknown Sex and Gender Information Value Date Recorded Sex Assigned at Not on file Legal Sex Female 11:03 PM EST Gender Identity Not on file Sexual Orientation Not on file Plan of Treatment Health Maintenance Due Date Last Done Comments HPV Vaccines (1 - 3-dose series) 01/28/2015 DTaP,Tdap,and Td Vaccines (1 - Tdap) 01/28/2019 Hepatitis B Vaccines (1 of 3 - 19+ 3-dose series) 01/28/2019 Cervical Cancer Screening: P ap Smear 01/28/2021 Depression Screening 05/02/2024 COVID-19 Vaccine ( - 2024-2 6 season) 2024 Influenza Vaccine (#1) 2024 RSV Immunization Adult Patie nts (1 - 1-dose 75+ series) 01/28/2075 HIB Vaccines Aged Out No longer eligi [...]
[2025-04-10 23:23] LABS: CT PCR NOT DETECTED (Not Detect.); NG PCR NOT DETECTED (Not Detect.)
== END 2025-04-10 11:03 | disposition home or self-care (01) ==
LOC: HO.LNP 11:02
PROVIDERS: PCP Student in an Organized Health Care Education/Training Program; Visit Provider Advanced Practice Midwife
DX: Z01.419 Encounter for gynecological examination (general) (routine) without abnormal findings (principal); Z20.2 Contact with and (suspected) exposure to infections with a predominantly sexual mode of transmission; Z97.5 Presence of (intrauterine) contraceptive device
CPT/HCPCS: 81515; 87491; 87591; 87626; 88175

== ENCOUNTER 2025-04-10 11:02 | Outpatient (AMB) | payer OTHER, SELFPAY ==
--- NOTE | 2025-04-10 11:06 | MHC.OFFVIS ---
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 Customer Counter Representative: Customer Counter Representative Present (Monica) Accompanied by: Self / Same As Patient Allergies No Known Allergies Allergy (Verified 04/10/25 11:10) Medication List - Last Reconciled 04/10/25 by Felipa Barry CNM cholecalciferol (vitamin D3) 25 mcg PO DAILY levonorgestrel (Kyleena) intrauterine lisdexamfetamine 10 mg PO DAILY sertraline (Zoloft) 150 mg (1.5 x 100 mg) PO DAILY Is last menstrual period known: Yes Last menstrual period: 04/10/25 Post menopausal: No Patient : No HPI HPI 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 She is not having any problems at all. She has the Kyleena IUD that was inserted in January of 2022 she had been on pills before that and likes their side effects however she was starting to forget them so she switched them out for the Kyleena which is more reliable for her. She does get regular periods but they are very mild and light end kind of brown and spotty her periods is just starting today. She has no concerns about STIs but is open to screening with the exam and the Pap smear that she is due for today. She does not really do much in the way of exercise but she is physically fit. She does not have any other medical problems at this time. [facility] Medical History Scoliosis Thrombocytopenia ADHD Low back pain Otitis media with effusion ADHD (attention deficit hyperactivity disorder), inattentive type Encounter to establish care Post-COVID syndrome COVID-19 Chronic cough URI (upper respiratory infection) UTI (urinary tract infection) Surgical History No pertinent past surgical history Family History Mother Age: 64 No problems noted. Father No problems noted. Paternal Grandmother Breast cancer Brother No problems noted. 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 Cognitive needs: No Hearing needs: No Vision needs: Yes (contacts) Female Reproductive History Menstrual Age of Menarche: 10 Date of last menstrual period: 04/10/25 control method: progestin IUCD (Kyleena ) Total pregnancies: 0 Date of last pap smear: 10/23/21 (negative pap smear ) Physical Exam Vital Signs: Last Vital Signs BP 102/62 04/10/25 11:07 BMI result Body Mass Index 23.7 Const General: healthy appearing, comfortable, no acute distress, well developed and alert Nutritional Appearance: average body habitus Orientation/consciousness: patient oriented x3 Limitations: no limitations HEENT Head: Yes normocephalic Neck Neck: Yes normal visual inspection Chest Chest palpation & inspection: normal inspection of the chest Breast/axilla inspection: normal inspection of the breasts and normal inspection of the axillae Breast/axilla palpation: normal palpation of the breasts and normal palpation of the axillae Resp Effort & Inspection: normal respiratory effort GI Inspection: Yes normal to inspection, No Abdominal wall edema and No distended Palpation (GI): Soft to palpation and nontender Other: External exam within normal limits vagina pink and moist nulliparous cervix is pink smooth healthy appearing with normal light menses and Kyleena string extending about 2 cm cervix is long close mobile nontender uterus is small midposition nontender adnexa nontender good muscle tone with Kegel. General: Yes bladder normal to palpation External Female Exam: normal external appearance and normal appearance of the urethra Speculum Exam - Vagina: normal appearance of the vagina, normal palpation and normal vaginal discharge Speculum Exam - Cervix: normal appearance of the cervix, normal palpation and nontender Bimanual exam- vagina & uterus: normal bimanual exam, normal palpation, uterine size normal, bladder normal to palpation, consistency normal, normal palpation, uterine mobility normal, uterine shape normal, No Cervical tenderness present, non-tender and no cervical motion tenderness Bimanual Exam- Adnexa, other: normal adnexae, no masses, normal and No adnexal tenderness Neuro General: patient oriented x3 Assessment & Plan Assessment & Plan (1) Cervical cancer screening: Comment: 10/27/21 pap = neg Code(s): Z12.4 - Encounter for screening for malignant neoplasm of cervix Category: Medical (2) Presence of 19.5 mg levonorgestrel-releasing intrauterine device (IUD): Comment: Has Kyleena IUD that was inserted 02/10/2022. Gets light spotty menses, content with method, would be due for replacement 2026. Code(s): Z97.5 - Presence of (intrauterine) contraceptive device Category: Social Hx (3) Well woman exam with routine gynecological exam: Code(s): Z01.419 - Encounter for gynecological examination (general) (routine) without abnormal findings Category: Medical (4) Encounter for screening examination for sexually transmitted disease: Code(s): Z11.3 - Encounter for screening for infections with a predominantly sexual mode of transmission Category: Medical Plan -----Discussed in this visit the following: healthy balanced diet, regular and consistent exercise, getting recommended health screens, doing the best she can for her particular health concerns, kegel exercises, pap smear screening and followup recommendations, mammography screening and SBE, normal changes in cycles in her life stage--- . Smear was done in his visit as she is due and I offered testing for STIs and she accepted with the visit but has no need for blood work. Reviewed how she is doing with the Kyleena IUD in the light menses she overall likes the side effects that she got with the pills better however since she was forgetting them the Kyleena has proved more reliable. Reviewed the this would be due for replacement in 5 years from insertion so we will be 2026. I told her to watch for heavier menses and if around the time of exploration if she noticed that she was getting signs of ovulation she should use precaution and be very careful and schedule the insertion. A tele visit beforehand could be arranged and then scheduling the insertion/replacement procedure would be scheduled for with her menses. Coding Level of Care Code Est Pt Prev Care [id number]) Diagnoses Cervical cancer screening Z12.4 Presence of 19.5 mg levonorgestrel-releasing intrauterine device (IUD) Z97.5 Well woman exam with routine gynecological exam Z01.419 Encounter for screening examination for sexually transmitted disease Z11.3
[2025-04-10 11:07] VITALS: BP 102/62; BMI 23.7
== END 2025-04-10 11:39 | disposition home or self-care (01) ==
LOC: HO.HWSM 11:02
PROVIDERS: PCP Student in an Organized Health Care Education/Training Program; Visit Provider Advanced Practice Midwife
DX: Z01.419 Encounter for gynecological examination (general) (routine) without abnormal findings (principal); Z97.5 Presence of (intrauterine) contraceptive device; Z11.3 Encounter for screening for infections with a predominantly sexual mode of transmission; Z12.4 Encounter for screening for malignant neoplasm of cervix
CPT/HCPCS: 99395; 99459